=== PATIENT | male | born 1985 | race Caucasian/White ===

== ENCOUNTER → 2016-10-25 | Outpatient (CLI) | payer OTHER ==
[~2016-10-25] MED LIST: ATV1 PO; ATV5 PO; CHOL100027 PO; LTHSR/300 PO; RISP1TAB PO; RISP1TAB68 PO; RISP3TAB12 PO; SERT-234 PO; THIO5CAP2 PO
[2016-10-25 12:23] LABS: BASO % 0.4 %; BASO ABS # 0.03 K/uL (0-0.2); COMPLETE YES; HEMATOCRIT 43.2 % (42-52); IG% 0.5 %; LYMPH % 28.1 %; MEAN CELL VOLUME 85.4 fL (80-100); MEAN CORPUSCULAR HEMOGLOBIN 29.2 pg (25-34); MEAN CORPUSCULAR HGB CONC 34.3 g/dl (32-36); MEAN PLATELET VOLUME 10.1 fL (7.4-10.4); MONO % 6.1 %; NEUT % 62.9 %; PLATELET COUNT 229 K/uL (130-400); RED BLOOD COUNT 5.06 M/uL (4.7-6.1); WHITE BLOOD COUNT 8.53 K/uL (4.8-10.8)
[2016-10-25 13:03] LABS: ALT/SGPT 59 U/L (12-78); AST/SGOT 15 U/L (15-37); BLOOD UREA NITROGEN 10 mg/dl (7-18); BUN/CREATININE RATIO 9.5 (10-20); CALCIUM 9.5 mg/dl (8.5-10.1); CARBON DIOXIDE 30 mmol/L (21-32); CHLORIDE 105 mmol/L (98-107); CHOLESTEROL 164 mg/dl (0-200); GLUCOSE 109 mg/dl (70-99); GLUCOSE,FASTING 109 mg/dl (70-99); POTASSIUM 4.4 mmol/L (3.5-5.1); SODIUM 140 mmol/L (136-145)
[2016-10-25 13:14] LABS: ALB/GLOB RATIO 1.1 (0.9-2); ALKALINE PHOSPHATASE 67 U/L (45-117); CHOLESTEROL/HDL RATIO 4.3; HDL CHOLESTEROL 38 mg/dl; LDL CHOLESTEROL CALCULATED 81 mg/dl; TRIGLYCERIDES 227 mg/dl (0-150); VERY LOW DENSITY LIPOPROT CALC 45 mg/dl
== END | disposition home or self-care (01) ==
LOC: C.LAB 11:09
PROVIDERS: ATTEND Psychiatry & Neurology Psychiatry
DX: Z79.899 Other long term (current) drug therapy (principal)

== ENCOUNTER → 2017-06-25 | Outpatient (CLI) | payer OTHER ==
[2017-06-25 11:32] LABS: BLOOD UREA NITROGEN 18 mg/dl (7-18); BUN/CREATININE RATIO 20.5 (10-20); CARBON DIOXIDE 28 mmol/L (21-32); CHLORIDE 106 mmol/L (98-107); CREATININE 0.88 mg/dl (0.60-1.40); GLUCOSE 112 mg/dl (70-99); POTASSIUM 4.1 mmol/L (3.5-5.1); SODIUM 138 mmol/L (136-145)
== END | disposition home or self-care (01) ==
LOC: C.LAB 09:21
PROVIDERS: ATTEND Psychiatry & Neurology Psychiatry
DX: F25.0 Schizoaffective disorder, bipolar type (principal)

== ENCOUNTER → 2017-08-27 | Outpatient (CLI) | payer OTHER ==
[~2017-08-27] MED LIST changes: +ATV/1 PO; -ATV1 PO; -ATV5 PO; -CHOL100027 PO; +ESCI10TA17 PO; +LEVO25TA5 PO; +QUET1TAB30 PO; -RISP1TAB PO; -RISP1TAB68 PO; -RISP3TAB12 PO; -SERT-234 PO; -THIO5CAP2 PO
[2017-08-27 09:50] LABS: BLOOD UREA NITROGEN 16 mg/dl (7-18); CALCIUM 10.4 mg/dl (8.5-10.1); CARBON DIOXIDE 30 mmol/L (21-32); CREATININE 1.14 mg/dl (0.60-1.40); GLUCOSE 105 mg/dl (70-99); POTASSIUM 4.1 mmol/L (3.5-5.1); SODIUM 139 mmol/L (136-145)
== END | disposition home or self-care (01) ==
LOC: C.LAB 08:34
PROVIDERS: ATTEND Psychiatry & Neurology Psychiatry
DX: F25.0 Schizoaffective disorder, bipolar type (principal); Z51.81 Encounter for therapeutic drug level monitoring; Z79.899 Other long term (current) drug therapy

== ENCOUNTER → 2017-11-30 | Outpatient (CLI) | payer OTHER ==
[2017-11-30 10:42] LABS: ALBUMIN 4.2 gm/dl (3.4-5.0); ALT/SGPT 38 U/L (12-78); AST/SGOT 10 U/L (15-37); BLOOD UREA NITROGEN 12 mg/dl (7-18); CALCIUM 9.7 mg/dl (8.5-10.1); CARBON DIOXIDE 27 mmol/L (21-32); CHOLESTEROL 172 mg/dl (0-200); CREATININE 0.97 mg/dl (0.60-1.40); GLUCOSE 105 mg/dl (70-99); POTASSIUM 4.1 mmol/L (3.5-5.1); SODIUM 138 mmol/L (136-145)
[2017-11-30 10:52] LABS: ALKALINE PHOSPHATASE 60 U/L (45-117); LDL CHOLESTEROL CALCULATED 82 mg/dl; TOTAL PROTEIN 7.9 gm/dl (6.4-8.2)
== END | disposition home or self-care (01) ==
LOC: C.CPL 09:30
PROVIDERS: ATTEND Psychiatry & Neurology Psychiatry
DX: F25.0 Schizoaffective disorder, bipolar type (principal); Z79.899 Other long term (current) drug therapy

== ENCOUNTER 2019-11-09 21:19 | Inpatient (IN) ==
[2019-11-09 21:51] LABS: Basophils # (auto) 0.03 K/uL (0-0.2); Basophils % (auto) 0.2 %; Eosinophils # (auto) 0.04 K/uL (0-0.5); Eosinophils % (auto) 0.3 %; Hematocrit (blood only) 44.2 % (42-52); Hemoglobin 14.9 g/dL (14.0-18.0); Immature Granulocytes # (auto) 0.07 K/uL (0.00-0.02); Immature Granulocytes % (auto) 0.5 %; Lymphocytes # (auto) 3.23 K/uL (1.2-3.4); Lymphocytes % (auto) 23.3 %; Mean Corpuscular Hemoglobin 29.9 pg (25-34); Mean Corpuscular Hgb Conc 33.7 g/dL (32-36); Mean Corpuscular Volume 88.8 fL (80-100); Mean Platelet Volume 9.8 fL (7.4-10.4); Monocytes # (auto) 1.15 K/uL (0.11-0.59); Monocytes % (auto) 8.3 %; Neutrophils # (auto) 9.35 K/uL (1.4-6.5); Neutrophils % (auto) 67.4 %; Platelet Count 283 K/uL (130-400); RDW Coefficient of Variation 13.2 % (11.5-14.5); RDW Standard Deviation 42.9 fL (36.4-46.3); Red Blood Count 4.98 M/uL (4.7-6.1); White Blood Count 13.87 K/uL (4.8-10.8)
--- NOTE | 2019-11-09 21:54 | Emergency Department Note ---
Impression & Plan Hallucinations, Dehydration, Non compliance w medication regimen ED Provider Note NAME: CINTIA ACOSTA AGE: 34 SEX: M : 1985 ARRIVES VIA: [employer] INFORMANT: Patient, ED PROVIDER(S): Josh Pedraza MD Chief Complaint: Behavioral change HPI: Most of the history is gathered from EMS and police report. The patient will answer some questions but not all questions thus the HPI is limited. The patient does present via police as the patient reportedly gotten into an argument with a neighbor. He apparently did charge at the neighbor's front door. The patient does have a known history of schizoaffective disorder for which she does take medications. Patient denies any SI, HI, or AVH. The patient denies any alcohol or tobacco use. The patient denies any drug use. The patient denies any trauma. Patient states he does not hurt anywhere. In the room the patient does appear to be talking to someone or something that is not there. ROS: Limited secondary to clinical acuity and willingness to participate. Past medical history: See below Surgical history: See below Social history: See below Physical Exam: GENERAL: Anxious in appearance, cannot sit still. Wearing a mask. EYE EXAM: Normal conjunctiva. PERRL, no anisocoria and EOM's grossly intact w/o pain. NECK: Supple, no nuchal rigidity, no adenopathy, non-tender. No signs of meningismus. LUNGS: Clear to auscultation. Normal chest wall mechanics. HEART: NSR, no MRG. ABDOMEN: Abdomen soft, non-tender, normo-active bowel sounds, no masses, no rebound or guarding. BACK: No CVA TTP. SKIN: No rashes and no bruising. UPPER EXTREMITIES: Upper extremities are grossly normal. LOWER EXTREMITIES: Grossly normal, no edema. NEURO EXAM: A&O x3, cranial nerves II-XII grossly intact, normal speech, moves all 4 extremities on command w/o issue. Psych: Denies SI, HI, or AVH. May be talking to someone or something that is not there. Differential diagnoses: Mood disorder, infection, hypoglycemia, electrolyte abnormalities, cardiac sources, intracerebral event, toxicologic, trauma, neurologic, as well as other pathologies. Course: Patient was seen and evaluated at the bedside. A full history and physical exam was performed. EKG: None Imaging Studies: None MDM: Patient was seen and evaluated the bedside. The patient did have blood work completed. A lithium level was also obtained as the patient is on lithium. Patient's blood work shows a mild white count of 13. Normal H&H and platelet count. The patient does have mild change in T bili and AST with the patient does not have any right upper quadrant pain is not jaundiced. The patient's tox screen is negative. Still pending UDS. [place] level is very low. This may suggest that the patient either does not have the medication or is noncompliant. The patient may not be suitable to sign himself and so the psych pillowcase folder was can wait for the urine and then write a petitioning 302 statement. I did sign out the patient to the overnight physician Dr. Fenton pending reevaluation and disposition. Past Med/Surg History Medical History Schizoaffective disorder (Inactive) Social History Preferred Language: Welsh Communication Ability: Effective Current Living Situation: Family Feels Safe at Home: Declines to Answer Smoking Status: Unknown if ever smoked Hx Alcohol Use: No Hx Substance Use: No Allergies Allergies Allergy/AdvReac Type Severity Reaction Status Date / Time prednisone Allergy Severe PSYCHOTIC Verified 07/02/17 11:25 STATE diphenhydramine Allergy Unknown BENADRYL Verified 07/02/17 11:25 CREAM--RASH haloperidol Allergy Unknown UNKNOWN Verified 07/02/17 11:25 Home Meds Home Medications Medication Instructions Recorded Confirmed levothyroxine 50 mcg PO QAM 11/09/19 11/09/19 lithium carbonate 1,350 mg PO HS 11/09/19 11/09/19 lorazepam 0.5 mg PO DAILY 11/09/19 11/09/19 quetiapine 300 mg PO QAM 11/09/19 11/09/19 quetiapine [Seroquel] 600 mg PO HS 11/09/19 11/09/19 risperidone 0.5 mg PO QAM 11/09/19 11/09/19 risperidone 1 mg PO HS 11/09/19 11/09/19 venlafaxine 225 mg PO QAM 04/19/20 04/19/20 Results & Data (ED) Vital Signs Vital Signs - 24 hr 11/09/19 21:40 Temperature 36.6 C Temperature Source Oral Pulse Rate 86 Respiratory Rate 18 Respiratory Effort / Characteristics Non-Labored Respiratory Depth Normal Respiratory Pattern Regular Blood Pressure 136/90 Blood Pressure Mean 105 Pulse Oximetry 98 Oxygen Delivery Method Room Air Sepsis Recent Fever Within 48 Hours No Sepsis New/Unexplained Change in Mental Status No Sepsis Action Taken by Nursing No Action Required Home Medications Current Medication List: was personally reviewed by me Laboratory Data Attestation: I reviewed the patient's lab results. Result diagrams: 11/09/19 21:35 11/09/19 21:35 Lab Results 11/09/19 11/09/19 11/09/19 Range/Units 21:35 21:35 21:35 WBC 13.87 H (4.8-10.8) K/uL RBC 4.98 (4.7-6.1) M/uL Hgb 14.9 (14.0-18.0) g/dL Hct 44.2 (42-52) % MCV 88.8 (80-100) fL MCH 29.9 (25-34) pg MCHC 33.7 (32-36) g/dL RDW Std Deviation 42.9 (36.4-46.3) fL RDW Coeff of Donna 13.2 (11.5-14.5) % Plt Count 283 (130-400) K/uL MPV 9.8 (7.4-10.4) fL Immature Gran % (Auto) 0.5 % Neut % (Auto) 67.4 % Lymph % (Auto) 23.3 % Darke % (Auto) 8.3 % Eos % (Auto) 0.3 % Baso % (Auto) 0.2 % Immature Gran # (Auto) 0.07 H (0.00-0.02) K/uL Neut # (Auto) 9.35 H (1.4-6.5) K/uL Lymph # (Auto) 3.23 (1.2-3.4) K/uL Darke # (Auto) 1.15 H (0.11-0.59) K/uL Eos # (Auto) 0.04 (0-0.5) K/uL Baso # (Auto) 0.03 (0-0.2) K/uL Sodium 134 L (136-145) mmol/L Potassium 3.9 (3.5-5.1) mmol/L Chloride 101 (98-107) mmol/L Carbon Dioxide 28 (21-32) mmol/L Anion Gap 6.0 (3-11) BUN 15 (7-18) mg/dl Creatinine 1.50 H (0.6-1.4) mg/dl Est Cr Clr Drug Dosing 87.3 ml/min Est GFR ( Amer) 68.4 Est GFR (Non-Af Amer) 59.0 BUN/Creatinine Ratio 9.7 L (10-20) Glucose 106 H (70-99) mg/dl Calcium 10.1 (8.5-10.1) mg/dl Total Bilirubin 1.1 H (0.2-1) mg/dl AST 50 H (15-37) U/L ALT 47 (12-78) U/L Alkaline Phosphatase 77 (45-117) U/L Total Protein 8.5 H (6.4-8.2) gm/dl Albumin 4.9 (3.4-5.0) gm/dl Globulin 3.6 (2.5-4.0) gm/dl Albumin/Globulin Ratio 1.4 (0.9-2) TSH 3.760 (0.300-4.500) uIu/ml Salicylates < 1.7 L (2.8-20) mg/dl Acetaminophen 3 L (10-30) ug/ml [place] 0.3 L (0.6-1.2) mmol/L Ethyl Alcohol mg/dL (0-3) mg/dl 11/09/19 Range/Units 21:35 WBC (4.8-10.8) K/uL RBC (4.7-6.1) M/uL Hgb (14.0-18.0) g/dL Hct (42-52) % MCV (80-100) fL MCH (25-34) pg MCHC (32-36) g/dL RDW Std Deviation (36.4-46.3) fL RDW Coeff of Donna (11.5-14.5) % Plt Count (130-400) K/uL MPV (7.4-10.4) fL Immature Gran % (Auto) % Neut % (Auto) % Lymph % (Auto) % Darke % (Auto) % Eos % (Auto) % Baso % (Auto) % Immature Gran # (Auto) (0.00-0.02) K/uL Neut # (Auto) (1.4-6.5) K/uL Lymph # (Auto) (1.2-3.4) K/uL Darke # (Auto) (0.11-0.59) K/uL Eos # (Auto) (0-0.5) K/uL Baso # (Auto) (0-0.2) K/uL Sodium (136-145) mmol/L Potassium (3.5-5.1) mmol/L Chloride (98-107) mmol/L Carbon Dioxide (21-32) mmol/L Anion Gap (3-11) BUN (7-18) mg/dl Creatinine (0.6-1.4) mg/dl Est Cr Clr Drug Dosing ml/min Est GFR ( Amer) Est GFR (Non-Af Amer) BUN/Creatinine Ratio (10-20) Glucose (70-99) mg/dl Calcium (8.5-10.1) mg/dl Total Bilirubin (0.2-1) mg/dl AST (15-37) U/L ALT (12-78) U/L Alkaline Phosphatase (45-117) U/L Total Protein (6.4-8.2) gm/dl Albumin (3.4-5.0) gm/dl Globulin (2.5-4.0) gm/dl Albumin/Globulin Ratio (0.9-2) TSH (0.300-4.500) uIu/ml Salicylates (2.8-20) mg/dl Acetaminophen (10-30) ug/ml [place] (0.6-1.2) mmol/L Ethyl Alcohol mg/dL < 3.0 (0-3) mg/dl Blood Pressure Blood Pressure Findings: Elevated blood pressure Blood Pressure Disposition: elevated BP felt to be situational Discharge Plan Visit Data Chief Complaint: Mental Health Evaluation Stated Complaint: [facility] ED Provider: Josh Pedraza Discharge Problem: Hallucinations, Dehydration, Non compliance w medication regimen Forms Stand Alone Forms: My [facility], Suicide Prevention Resources Prescriptions Prescriptions: No Action venlafaxine 150 mg Capsule,Extended Release 24hr 225 mg PO QAM RF: 0 quetiapine [Seroquel] 200 mg Tablet 600 mg PO HS RF: 0 risperidone 0.5 mg Tablet 0.5 mg PO QAM RF: 0 risperidone 0.5 mg Tablet 1 mg PO HS RF: 0 quetiapine 200 mg tablet 300 mg PO QAM RF: 0 lithium carbonate 300 mg capsule 1,350 mg PO HS RF: 0 levothyroxine 50 mcg tablet 50 mcg PO QAM RF: 0 lorazepam 0.5 mg tablet 0.5 mg PO DAILY RF: 0
[2019-11-09 22:07] LABS: Albumin Level 4.9 gm/dl (3.4-5.0); BUN Creatinine Ratio 9.7 (10-20); Calcium 10.1 mg/dl (8.5-10.1); Creatinine Clr Calc Pharmacy 87.3 ml/min; Est GFR (African American) 68.4; Potassium 3.9 mmol/L (3.5-5.1)
[2019-11-09 22:18] LABS: Albumin Globulin Ratio 1.4 (0.9-2); Bilirubin,Total 1.1 mg/dl (0.2-1); Globulin 3.6 gm/dl (2.5-4.0); Thyroid Stimulating Hormone 3.76 uIu/ml (0.300-4.500); Total Protein 8.5 gm/dl (6.4-8.2)
[2019-11-09 22:30] LABS: Acetaminophen 3 ug/ml (10-30); Lithium 0.3 mmol/L (0.6-1.2); Salicylate < 1.7 mg/dl (2.8-20)
[2019-11-09 23:51] LABS: Appearance Urine Clear (Clear); Bilirubin Urine Negative (Negative); Blood Urine Negative (Negative); Color Urine Yellow; Glucose Urine UA Negative (Negative); Ketones Urine Negative (Negative); Leukocyte Esterase Urine Negative (Negative); Nitrite Urine Negative (Negative); Protein Urine Trace (Negative); Specific Gravity Urine 1.014 (1.000-1.030); Urobilinogen Urine Negative (Negative); pH Urine 5.5 (4.5-7.5)
[2019-11-10 00:09] LABS: Mucus Urine Present (None Prsent); RBC Urine 0-4 /hpf (0-4)
[2019-11-10 00:10] LABS: Bacteria Urine Negative (Negative); WBC Urine 0-5 /hpf (0-5)
[2019-11-10 00:15] LABS: Amphetamines+Metham, Urine Neg (Neg); Barbiturates, Urine Neg (Neg); Benzodiazepine, Urine Neg (Neg); Cocaine, Urine Neg (Neg); MDMA (Ecstacy), Urine Pos (Neg); Methadone, Urine Neg (Neg); Opiate, Urine Neg (Neg); Phencyclidine, Urine Neg (Neg)
[2019-11-10] MEDS ORDERED: LORazepam 1 MG TAB PO STA (00:37)
--- NOTE | 2019-11-10 00:42 | Emergency Department Note ---
ED Visit Note ED Physician Note: Patient Boarding. Date 11/10/19. Time 11:30 pm. 34 age male patient remains in ED awaiting an available psychiatric placement. Patient with acute paranoid schizophrenia off his medications. Severely bizare behavior and not ineracting normally. Patient evaluated and pacing room but re- directable. At 12:30a worsening agitation and pacing not following directions. Initially willing to take PO Ativan. Patient 302 signed by me given clearly not understandin situation. Denies hallucinations but he very much appears to be reacting to internal stimuli and looking at things that are not there. Patient remains in NAD and vitals stable. Psychiatric exam reveals acute paranoid schizophrenia with loss of touch with reality. Earlier labs unremarkable and no additional testing indicated at this time. 1:10am escalating behavior, unwilling to follow commands, refusing ativan that was earlier ordered for him and actively trying to leave. Reviewed allergy of Haldol, apparently this was followed by [facility], thus given the escalation in his agitation will give small dose Haldol with IM ativan and monitor closely with cardiac monitoring following this. I was unable to verbally deescalate nor re- direct the patient. The patient's combative behavior was risking a catastrophe. To protect the staff and the patient from harm it was felt at this point necessary to chemically restrain the patient. 1:30am mildly improved but continued attempts at getting away and clearly requiring further sedation thus Ativan and Zyprexa ordered which patient was given. Following this patient calm and falling asleep. No longer agitated nor making hostile movements. Repeat exams regularly patient stable. Patient at times awake, walking around the room and still bizarre affect and activity but no longer aggressive/agitated. Critical Care: I have personally spent 45 minutes of critical care time in the direct management of this patient. Acutely Agitated psychiatric patient requiring chemical sedation. This was a life/limb threatening event. This 45 minutes is in excess of all separately billable procedures. Elvis Fenton MD
[2019-11-10] MEDS ORDERED: LORazepam 2 MG/ML VIAL (IM USE) IM STA ×2 (01:14→01:39)
[2019-11-10] MEDS ORDERED: HALOPERIDOL LACTATE 5 MG/ML 1 ML VIAL IM STA (01:14)
[2019-11-10] MEDS ORDERED: OLANZapine 10 MG/2.1 ML SDV IM ONE (01:36)
[2019-11-10] MEDS ORDERED: OLANZapine 10 MG/2.1 ML SDV IM STA (01:39)
--- NOTE | 2019-11-10 06:44 | Emergency Department Note ---
ED Visit Note Received patient in signout. History and physical verified by me. [facility] to [facility]. .
[2019-11-10] MEDS ORDERED: BISMUTH SUBSALICYLATE PER ML OMNICELL CHARGE PO PRN (10:50)
[2019-11-10] MEDS ORDERED: MAGNESIUM HYDROXIDE SUSP 30 ML UDC PO PRN (10:50)
[2019-11-10] MEDS ORDERED: SODIUM CHLORIDE 0.65% NA SOLN 45 ML (OCEAN) PRN (10:50)
[2019-11-10] MEDS ORDERED: ALUMINUM/MAGNESIUM SUSP 30 ML UDC PO PRN (10:50)
[2019-11-10] MEDS ORDERED: OLANZapine 10 MG/2.1 ML SDV IM PRN (10:54)
[2019-11-10] MEDS ORDERED: risperiDONE 1 MG TABLET PO PRN (10:55)
--- NOTE | 2019-11-10 14:22 | History & Physical ---
Date of Service November 10, 2019 Impression / Recommendations Impression 34-year-old male admitted involuntarily for inpatient psychiatric treatment on 11/10/2019 after being brought to the ED by police on a 302 warrant. It was reported that police were called by the patient's neighbor following a verbal altercation between the two. Pt was reported disorganized and was therefore brought to the ED for mental health evaluation. 302 petitioning statement was completed by ED psychiatric case specialist, and upheld by ED physician. Pt was accepted to our unit for treatment of schizoaffective disorder, bipolar type. Will need to confirm home medication regimen with patient's outpatient psychiatrist. At this time, will offer prns of risperidone for psychosis/delusions/restlessness and can adjust scheduled dosing accordingly. Will continue reported home doses of lithium, quetiapine, lorazepam, and risperidone. Pt is declining to involve his parents in his treatment at this time, but is reporting a plan to move out of their house and become more independent - so it would be helpful to involve them in discussions about this. Will coordinate care with patient's therapist and psychiatrist. Pt will be encouraged to participate in group and recreational programming, and to work on development of healthy and effective coping strategies. Inpatient psychiatric treatment is medically necessary at this time due to concerns of decompensation and risk of harm to self or others, whether intentional or unintentional. Dr. Mare Lopez was directly involved in review and discussion of the patient's case and participated in medical decision making regarding treatment recommend ations. (1) Schizoaffective disorder: 11/09 - Admitted to a locked inpatient behavioral health unit, on q15 minute safety checks - Outpatient psychiatrist has confirmed diagnosis of schizoaffective disorder, bipolar type. Will require records and continued coordination regarding patient's current medication list and other information surrounding his history. - At this time, will continue lithium 1350mg qHS, lorazepam 0.5mg qHS, quetiapine 300mg qAM and 600mg qHS, and risperidone 0.5mg qAM and 1mg qHS (with 1mg prn dose available). Holding venlafaxine until medication list can be confirmed - can re-initiate if patient reports symptoms of discontinuation syndrome. UDS positive for MDMA, with recent prescription for bupropion (though not clear if this is a current or past medication). - Fasting labs obtained by outpatient psychiatrist in 02/2019. HgbA1c was 5.1%. Triglycerides elevated at 217. Total cholesterol within normal limits at 139. LDL - 58; HDL - 38. - Pt's creatinine was mildly elevated in the ED - given continued use of lithium, will repeat BMP for tomorrow morning - Encourage participation in group and recreational therapies. Will assist with development of healthy and effective coping strategies - Encourage family meeting to involve parents in safety/discharge planning - unwilling to sign an JERAMIE at this time - Arrange appropriate aftercare appointments Schizoaffective disorder type: bipolar Qualified Code(s): F25.0 - Schizoaffective disorder, bipolar type (2) Hypothyroidism: 11/09 - Continue home dose of levothyroxine 50mcg qAM Hypothyroidism type: unspecified Qualified Code(s): E03.9 - Hypothyroidism, unspecified Risk Factors Assessment Do You Have Access To A Gun?: No Protective Factors Assessment Employed: No Psychiatric History Identifying Data EMANUEL ACOSTA is a 34-year-old M who currently lives in [place] with his mother and father. Pt has a history of schizoaffective disorder, bipolar type, and was admitted on 11/10/19 10:51 on a 302 involuntary commitment for delusions/paranoia leading to a verbal altercation with a neighbor. Police were called to patient's home and he was brought to the ED for further evaluation. Chief Complaint "For the last few weeks, I've been sort of in survival mode. Just trying to take care of myself and my dog." History of Present Illness Emanuel Acosta is a 34-year-old male admitted involuntarily on 11/10/2019 after being brought to the ED by [place] Police for a mental health evaluation. Pt has a reported history of schizoaffective disorder, bipolar type with last psychiatric hospitalization reportedly in 06/2017. 302 petitioning statement was prepared by ED psychiatric case specialist, upheld in ED by physician. Statement reads: "Emanuel Acosta was brought to ED via [employer] after neighbors called police d/t patient engaging in a verbal altercation with them and charging at their door. Emanuel appears confused and disoriented. Emanuel will not answer most questions. He was observed talking to a person who wasn't there. Emanuel is pacing and restless but does not appear oriented to where he is going or what he is doing. Emanuel is not able to provide for his self care and personal safety at this time d/t not being reality-based. Mother reports patient may not be taking his medication. Patient's lithium level was low in the ED." Pt was rather agitated in the ED, requiring IM injections of haloperidol, lorazepam, and olanzapine - he appears to be calm upon arrival to the unit. Pt was cooperative with psychiatric evaluation. He reports feeling as though he has been in "survival mode" for the past several weeks. Although he has difficulty describing what this means, he is able to verbalize awareness that he has not been as stable psychiatrically for the past month. Pt is unable to provide any "warning signs" of this instability, but states his mother was also noticing some concerns. Pt reports his mother had encouraged him to reach out to his outpatient psychiatrist, or stated that she would do it for him. Pt speaks on several separate occasions about his frustration with feeling he was being pressured by his parents to make certain decisions. Pt states that he has been wanting to move out of his parents house, but admits that there is no specific plan in place to make this happen as "I've just been trying to clean and pack things up, but I don't know where I would go." Pt states that he feels his relationship with his parents has been strained for the past month. When attempting to gather more details about this, patient is unable to offer specifics. Pt was asked about the event which directly lead to his admission. He did require a significant amount of prompting before even mentioning the altercation with his neighbor, and even then was unsure of many of the details. Patient's understanding is that he had been out walking his dog and "wandered onto the neighbor's property." He states the neighbor started yelling at him, and next thing he knew the police were at his house. When asked about details, only then does patient admit he walked up to the neighbor's door and knocked. Pt is unsure about the nature of the argument and states the man was not someone he normally interacted with. Pt did deny feeling compelled to speak with the man, or being instructed to talk with him by any voices. Pt's frequent response to questions on this topic was "it was a blur." Pt does admit to feeling "sad" more frequently, stating "I'm not smiling as much as I used to." He also admits to increased anxiety in the setting of his strained relationship with his parents. Pt states that his appetite has been decreased for the past month, and that while he is not feeling fatigued or having difficulty sleeping "I just don't get enough sleep." Pt denies SI presen tly, but states that he had thought about "you know people that cut themselves? I've never done it, but I did think about it a couple days ago." Pt states that he has not been admitted for psychiatric treatment in over 2 years. He has had consistent therapy and psychiatric medication management for 15+ years. Pt does admit to some recent medication adjustments (titration of quetiapine and init iation of risperidone) in order to improve mood stability. Pt denies SI, HI, SIB, A/V hallucinations, paranoia, valeri/hypomania, OCD, PTSD, eating disorder, and other specific psychiatric symptoms. Past Psychiatric History Current Psychiatric Diagnosis: Schizoaffective Disorder, bipolar type Outpatient Services: Psychiatrist - Dr. Candelario Therapist - Gia Nichols [facility] Previous Psych Admissions: Most recent psychiatric admission was reportedly in 06/2017 at [facility]. Pt has been admitted to [facility] on several occasions - 01/2004, 01/2010, and 11/2011. Do You Have Access To A Gun?: No History of Previous Suicide Attempt: No Past Medication Trials: 1. Risperdal 2. [place] 3. Seroquel 4. Ativan 5. Effexor 6. Wellbutrin 7. Propranolol 8. Benztropine 9. Haldol 10.Zyprexa 11.Zoloft 12.Prolixin Past Head Trauma/Neuro History History of Concussion/Seizure: No Allergies Allergy/AdvReac Type Severity Reaction Status Date / Time prednisone Allergy Severe PSYCHOTIC Verified 07/02/17 11:25 STATE diphenhydramine Allergy Unknown BENADRYL Verified 07/02/17 11:25 CREAM--RASH haloperidol Allergy Unknown UNKNOWN Verified 07/02/17 11:25 Home Medications Home Medications Medication Instructions Recorded Confirmed Type levothyroxine 50 mcg PO QAM 11/09/19 11/09/19 History lithium carbonate 1,350 mg PO HS 11/09/19 11/09/19 History lorazepam 0.5 mg PO DAILY 11/09/19 11/09/19 History quetiapine 300 mg PO QAM 11/09/19 11/09/19 History quetiapine [Seroquel] 600 mg PO HS 11/09/19 11/09/19 History risperidone 0.5 mg PO QAM 11/09/19 11/09/19 History risperidone 1 mg PO HS 11/09/19 11/09/19 History venlafaxine 225 mg PO QAM 11/09/19 11/09/19 History Family History Family History of: None Alcohol History Hx of Alcohol Use Over the Past 12 Months: No AUDIT Total Score: 0 Pt denies alcohol consumption in the past 2.5 years. Smoking Use Have You Smoked or Used Tobacco Products in the Last 30 Days: No Smoking Status: Former smoker (reports history of chewing and smoking - quit >6mo ago) Substance History Hx of Prescription Med Misuse Over the Past 12 Months: No Hx of Over the Counter Med Misuse Over the Past 12 Months: No Hx of Inhalent Misuse Over the Past 12 Months: No Hx of Organic Substance Use Over the Past 12 Months: No Hx of Illegal Substances/Street Drug Use Over Past 12 Months: No Problems as a Result of Past Substance Use: None Identified Pt denies current use of past experimentation with illicit substances. 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) Marital Status: Single Number Of Children: N/A Beliefs That Will Affect Care: Spiritual ("I believe in something, I have leslye") Current Legal Problems: No Hx Legal Problems: No Hx Traumatic Life Events: No Psychological Trauma History Comment: Denies Patient History Medical History Schizoaffective disorder Social History Preferred Language: [place] Communication Ability: Effective Trademark Attorney Required: No Beliefs That Will Affect Care: Spiritual ("I believe in something, I have leslye") Current Living Situation: Family Feels Safe at Home: Declines to Answer Smoking Status: Former smoker (reports history of chewing and smoking - quit >6mo ago) Hx Alcohol Use: No Hx Substance Use: No Review of Systems Review of Systems: Constitutional: denied Cardiovascular: denied Respiratory: denied Gastrointestinal: reports reduced appetite Neurological: denied Psychiatric: denies symptoms other than stated above Total of at least 10 systems reviewed, pertinent positives as above and in HPI. Physical Exam Psychiatric: Orientation: alert, oriented x 3 and cooperative Apperance: appropriately dressed, appropriately groomed and appeared stated age Obese male seated in no acute distress. Pt is appropriate dressed for setting, still wearing paper scrubs. Level of hygiene appears adequate, though grooming is somewhat limited (stubble on face, hair mildly unkempt). Eye Contact: + fair eye contact Motor Behavior: steady gait and station and no abnormal motor movements Speech: normal rate/rhythm/volume of speech (slow speach, frequent delays before answering questions); no pressured speech (not rapid) Affect: + flat affect Mood: + anxious mood ("I've just been in survival mode" and "pretty stressed lately") Thought Process: goal directed thought process, + thought blocking (delays before responding to questions, abrupt endings to answers) and + concrete thought process Thought Content: + hopelessness (occasional); no delusions (pt denies any overt delusional thoughts) Pt provides rather vague reports regarding his psychiatric symptoms/history - unable to provide a full/detailed account of events leading to admission Suicidal Thoughts: denies suicidal thoughts and denies suicidal intent Homicidal Thoughts: denies homicidal thoughts Hallucinations: no auditory hallucinations and no visual hallucinations Denies, though was reportedly talking to an unseen person while in the ED prior to admission Cognition: attention grossly intact and language grossly intact; + recent memory not intact (several significant gaps in patient's pre-admission account) Insight: + impaired insight Judgement: + impaired judgement Vital Signs (Past 24 Hours): Last Vital Signs Temp 36.7 C 11/10/19 12:35 Pulse 102 H 11/10/19 12:35 Resp 16 11/10/19 12:35 BP 134/76 11/10/19 12:35 Pulse Ox 100 11/10/19 11:23 Exam Statement: A physical exam was performed in the ER prior to admission to the unit by Dr. Josh Pedraza MD. I accept that physical as correct/medical clearance for the inpatient physical exam. Results & Data ([id number]) Laboratory Results Laboratory Results - last 24 hr 0411/09/19 11/09/19 21:35 21:35 21:35 WBC 13.87 H RBC 4.98 Hgb 14.9 Hct 44.2 MCV 88.8 MCH 29.9 MCHC 33.7 RDW Std Deviation 42.9 RDW Coeff of Donna 13.2 Plt Count 283 MPV 9.8 Immature Gran % (Auto) 0.5 Neut % (Auto) 67.4 Lymph % (Auto) 23.3 [place] % (Auto) 8.3 Eos % (Auto) 0.3 Baso % (Auto) 0.2 Immature Gran # (Auto) 0.07 H Neut # (Auto) 9.35 H Lymph # (Auto) 3.23 [place] # (Auto) 1.15 H Eos # (Auto) 0.04 Baso # (Auto) 0.03 Sodium 134 L Potassium 3.9 Chloride 101 Carbon Dioxide 28 Anion Gap 6.0 BUN 15 Creatinine 1.50 H Est Cr Clr Drug Dosing 87.3 Est GFR ( Amer) 68.4 Est GFR (Non-Af Amer) 59.0 BUN/Creatinine Ratio 9.7 L Glucose 106 H Calcium 10.1 Total Bilirubin 1.1 H AST 50 H ALT 47 Alkaline Phosphatase 77 Total Protein 8.5 H Albumin 4.9 Globulin 3.6 Albumin/Globulin Ratio 1.4 TSH 3.760 Urine Color Urine Appearance Urine pH Ur Specific [place] Urine Protein Urine Glucose (UA) Urine Ketones Urine Blood Urine Nitrite Urine Bilirubin Urine Urobilinogen Ur Leukocyte Esterase Urine RBC Urine WBC Ur Epithelial Cells Urine Bacteria Hyaline Casts Urine Mucus Salicylates < 1.7 L Urine Opiates Screen Ur Methadone, Qual Acetaminophen 3 L Urine Barbiturates Ur Phencyclidine (PCP) U Amphetamin/Meth Scrn Urine MDEA MDMA (Ecstasy) Screen MDMA Urine MDMA U Benzodiazepines Scrn [place] 0.3 L Ur Cocaine Metabolite U Marijuana (THC) Screen Ethyl Alcohol mg/dL 11/09/19 11/09/19 11/09/19 21:35 Unknown Unknown WBC RBC Hgb Hct MCV MCH MCHC RDW Std Deviation RDW Coeff of [place] Plt Count MPV Immature Gran % (Auto) Neut % (Auto) Lymph % (Auto) [place] % (Auto) Eos % (Auto) Baso % (Auto) Immature Gran # (Auto) Neut # (Auto) Lymph # (Auto) [place] # (Auto) Eos # (Auto) Baso # (Auto) Sodium Potassium Chloride Carbon Dioxide Anion Gap BUN Creatinine Est Cr Clr Drug Dosing Est GFR ( Amer) Est GFR (Non-Af Amer) BUN/Creatinine Ratio Glucose Calcium Total Bilirubin AST ALT Alkaline Phosphatase Total Protein Albumin Globulin Albumin/Globulin Ratio TSH Urine Color Yellow Urine Appearance Clear Urine pH 5.5 Ur Specific [place] 1.014 Urine Protein Trace H Urine Glucose (UA) Negative Urine Ketones Negative Urine Blood Negative Urine Nitrite Negative Urine Bilirubin Negative Urine Urobilinogen Negative Ur Leukocyte Esterase Negative Urine RBC 0-4 Urine WBC 0-5 Ur Epithelial Cells 5-10 H Urine Bacteria Negative Hyaline Casts 10-30 H Urine Mucus Present A Salicylates Urine Opiates Screen Neg Ur Methadone, Qual Neg Acetaminophen Urine Barbiturates Neg Ur Phencyclidine (PCP) Neg U Amphetamin/Meth Scrn Neg Urine MDEA MDMA (Ecstasy) Screen Pos H MDMA Urine MDMA U Benzodiazepines Scrn Neg [place] Ur Cocaine Metabolite Neg U Marijuana (THC) Screen Neg Ethyl Alcohol mg/dL < 3.0 11/09/19 Unknown WBC RBC Hgb Hct MCV MCH MCHC RDW Std Deviation RDW Coeff of [place] Plt Count MPV Immature Gran % (Auto) Neut % (Auto) Lymph % (Auto) [place] % (Auto) Eos % (Auto) Baso % (Auto) Immature Gran # (Auto) Neut # (Auto) Lymph # (Auto) [place] # (Auto) Eos # (Auto) Baso # (Auto) Sodium Potassium Chloride Carbon Dioxide Anion Gap BUN Creatinine Est Cr Clr Drug Dosing Est GFR ( Amer) Est GFR (Non-Af Amer) BUN/Creatinine Ratio Glucose Calcium Total Bilirubin AST ALT Alkaline Phosphatase Total Protein Albumin Globulin Albumin/Globulin Ratio TSH Urine Color Urine Appearance Urine pH Ur Specific [place] Urine Protein Urine Glucose (UA) Urine Ketones Urine Blood Urine Nitrite Urine Bilirubin Urine Urobilinogen Ur Leukocyte Esterase Urine RBC Urine WBC Ur Epithelial Cells Urine Bacteria Hyaline Casts Urine Mucus Salicylates Urine Opiates Screen Ur Methadone, Qual Acetaminophen Urine Barbiturates Ur Phencyclidine (PCP) U Amphetamin/Meth Scrn Urine MDEA Pending MDMA (Ecstasy) Screen MDMA Pending Urine MDMA Pending U Benzodiazepines Scrn [place] Ur Cocaine Metabolite U Marijuana (THC) Screen Ethyl Alcohol mg/dL Current Inpatient Medications Current Inpatient Medications: Current Inpatient Medications Acetaminophen (Tylenol) 650 mg PO Q4H PRN PRN Reason: Headache or Minor Fever Stop: 12/10/19 10:49 Al Hydrox/Mg Hydrox/Simethicone (Maalox) 30 ml PO Q4H PRN PRN Reason: GI Upset Stop: 12/10/19 10:49 Bismuth Subsalicylate (Kaopectate) 15 ml PO PRN PRN PRN Reason: Loose Stool Stop: 12/10/19 10:49 Levothyroxine Sodium (Synthroid) 50 mcg PO DAILYBB RAGHAVENDRA Stop: 12/11/19 07:59 [place] Carbonate ([place] Carbonate) 1,350 mg PO HS [facility] Stop: 12/10/19 20:59 Lorazepam (Ativan) 0.5 mg PO DAILY RAGHAVENDRA Stop: 12/11/19 08:59 Magnesium Hydroxide (Milk Of Magnesia) 30 ml PO DAILY PRN PRN Reason: Constipation Stop: 12/10/19 10:49 Olanzapine (Zyprexa) 10 mg IM Q6H PRN PRN Reason: psychosis Stop: 12/10/19 10:59 Quetiapine Fumarate (Seroquel) 600 mg PO HS [facility] Stop: 12/10/19 20:59 Quetiapine Fumarate (Seroquel) 300 mg PO QAM RAGHAVENDRA Stop: 12/11/19 08:59 Risperidone (Risperdal) 0.5 mg PO QAM RAGHAVENDRA Stop: 12/11/19 08:59 Risperidone (Risperdal) 1 mg PO HS RAGHAVENDRA Stop: 12/10/19 20:59 Risperidone (Risperdal) 1 mg PO Q6H PRN PRN Reason: psychosis Stop: 12/10/19 10:54 Sodium Chloride ([place] Nasal) 1 - 2 sprays NA PRN PRN PRN Reason: Nasal Dryness/Congestion Stop: 12/10/19 10:49
[2019-11-10] MEDS: LORazepam 0.5 MG TAB PO SCH (21:56)
[2019-11-10] MEDS: LITHIUM CARBONATE 300 MG TAB PO SCH (21:56)
[2019-11-10] MEDS: risperiDONE 1 MG TABLET PO SCH (21:57)
[2019-11-10] MEDS: QUETIAPINE FUMARATE 300 MG TABLET PO SCH (21:57)
[2019-11-11] MEDS: ACETAMINOPHEN 325 MG TAB PO PRN (05:54)
[2019-11-11] MEDS: QUETIAPINE FUMARATE 300 MG TABLET PO SCH ×2 (07:47→21:36)
[2019-11-11] MEDS: LEVOTHYROXINE SODIUM 50 MCG TABLET PO SCH (07:47)
[2019-11-11] MEDS: risperiDONE 0.5 MG TABLET PO SCH (07:47)
[2019-11-11 08:13] LABS: BUN Creatinine Ratio 13.6 (10-20); Calcium 9.9 mg/dl (8.5-10.1); Creatinine Clr Calc Pharmacy 122.4 ml/min; Est GFR (Non-African American) 88.8; Potassium 3.9 mmol/L (3.5-5.1)
--- NOTE | 2019-11-11 08:26 | Psychiatric Progress Note ---
Date of Service November 11, 2019 Impression / Recommendations Impression 34-year-old male with schizoaffective disorder bipolar type who is admitted involuntarily after being brought to the ED by police on a 302 warrant due to psychosis, erratic and disorganized behavior in the community, and inability to provide for his own basic needs and safety. Police were called by the patient's neighbor following a verbal altercation between the two, and the patient appeared altered, disoriented, and family reported he was not taking his medication. His lithium level was low on presentation, and he admits to poor medication adherence, which appears to be due to psychosis, disorganization, and forgetting to take meds. He was initially continued on his home doses of lithium, quetiapine, lorazepam, and risperidone, with additional risperidone as needed doses. We have now received his outpatient medication list and will add bupropion which he is also supposed to be taking and which may be helpful for mood. He initially declined to involve his parents in his treatment, but is not today willing to sign a release and have a family meeting. He was also willing for a referral for case management services, which will be important for him to have additional support as 1 of his goals is to eventually live independently. Inpatient psychiatric treatment remains medically necessary at this time due to severity of psychotic symptoms, inability to provide for his own basic needs, and risk of harm to both himself or others as a result of his psychosis. (1) Schizoaffective disorder: 11/09 - Admitted to a locked inpatient behavioral health unit, on q15 minute safety checks - Outpatient psychiatrist has confirmed diagnosis of schizoaffective disorder, bipolar type. Will require records and continued coordination regarding patient's current medication list and other information surrounding his history. - At this time, will continue lithium 1350mg qHS, lorazepam 0.5mg qHS, quetiapine 300mg qAM and 600mg qHS, and risperidone 0.5mg qAM and 1mg qHS (with 1mg prn dose available). Holding venlafaxine until medication list can be confirmed - can re-initiate if patient reports symptoms of discontinuation syndrome. UDS positive for MDMA, with recent prescription for bupropion (though not clear if this is a current or past medication). - Fasting labs obtained by outpatient psychiatrist in 02/2019. HgbA1c was 5.1%. Triglycerides elevated at 217. Total cholesterol within normal limits at 139. LDL - 58; HDL - 38. - Pt's creatinine was mildly elevated in the ED - given continued use of lithium, will repeat BMP for tomorrow morning - Encourage participation in group and recreational therapies. Will assist with development of healthy and effective coping strategies - Encourage family meeting to involve parents in safety/discharge planning - unwilling to sign an JERAMIE at this time - Arrange appropriate aftercare appointments 11/10 - Creatinine elevated on admission (1.5), recheck today is 1.07. Resumed lithium yesterday, will recheck trough after 5 days (11/14). - Resume home dose of bupropion XL 250 mg every morning. - Collateral information from parents would be very helpful, and today patient indicates willingness to sign an JERAMIE and schedule a family meeting. - Coordinate care with Dr. Candelario, outpatient psychiatrist. He will need to be rescheduled with his therapist, Gia Ca - Refer for [facility] for additional support. (2) Hypothyroidism: 11/09 - Continue home dose of levothyroxine 50mcg qAM Risk Factors Assessment Do You Have Access To A Gun?: No Protective Factors Assessment Employed: No Interval History Identifying Information CINTIA ACOSTA is a 34-year-old M who currently lives in [place] with his mother and father, has a history of schizoaffective disorder, bipolar type, and was admitted on 11/10/19 10:51 on a 302 involuntary commitment for delusions/paranoia leading to a verbal altercation with a neighbor. Police were called to patient's home and he was brought to the ED for further evaluation. Chief Complaint "Little tired right now". Review of Systems Sleep Information Total Hours of Sleep: 7 Sleep Comments: pt appeared to sleep 1.25 hrs during evening shift. pt on q-15 minute checks Meal Information Percent Meal Consumed - Dinner: 100 Subjective Subjective Patient was seen & assessed and interval progress reviewed with nursing and social work. Staff report he is refusing to sign an JERAMIE for his parents so we have not been able to get collateral. There is still some question of his outpatient med list as he's had multiple recent changes; have requested records from Dr. Candelario. He took his medications as ordered, and went to community meeting last night. On my assessment, he states that he continues to feel tired, with muscle soreness, and his right thumbnail hurts as he smashed it with a rock, but cannot say how this happened, saying he does not recall. He is a poor historian for the events leading up to admission, stating that he cannot recall how he came to be in the hospital, but that the police came and picked him up at his parents house. He stated he was "really stressed out and feeling like I had to do things that were way too much for me to do. Audra stuck and had to move forward without any help from people I'd asked for help. Basically things just spiraled out of control, next thing I knew police were taking me here." He is able to clarify that he was feeling "like I had to move out of my parents house and get my room back in order so I didn't leave a mess for my parents," but did not actually have a place to move into. He said he had been thinking about moving to [place] to live with his sister "until things get better." He is unsure of what medications he is supposed to be taking, and states there were multiple adjustments and changes recently. Reviewed his outpatient records which indicate multiple medication adjustments over the last 2 months, including increasing lithium dose, discontinuation of propanolol, increasing quetiapine, decrease in bupropion XL due to concern for manic symptoms, discontinuation of venlafaxine XR due to manic symptoms, and the addition of risperidone over the past week. He admits to difficulty taking his medications as prescribed at home, stating that he used to use a pillbox and had "a system" that worked well for him, but lately has been poorly compliant. He states his mood was "horrible, terrible" yesterday, but today is "better." He states that he recently has been unable to "smile or laugh, show any emotion." He had suicidal thoughts yesterday, but none so far today. He denies thoughts of harming others. He reports visual hallucinations over the past 2 to 4 weeks, including seeing his dog in multiple places at the same time, different colored lights that flash, and shadows that appear "strange, digital content specialist or darker than they should be." He is experiencing hallucinations of lights and shadows here in the hospital. He states he has not yet contacted his parents but plans to do so today, plans to return to live with them for the time being, and is willing to have a family meeting with them and the director social welfare. He states he has not been to therapy in months as he missed an appointment and then did not follow through on rescheduling. His goal is to "get my medications back in order and find a system I can use to take them, because I don't always remember." Summary of Past History Care coordinated with Dr. Candelario: Patient was on Invega Sustenna but it was discontinued due to sedation, weight gain, and negative psychotic symptoms. His p.o. intake has decreased over the past 2 weeks in the context of worsening anxiety and paranoia. He believes he has a variant of bipolar disorder, as well as significant social anxiety. He was doing well until he started to decompensate several months ago. His mother called about a month ago and reported behavior changes. The home situation is problematic, as both parents are destabilizing factors for the patient, especially his father. He has not be en able to identify an alternative living situation that he can afford. The patient rescinded releases for Dr. Candelario to talk with his parents about a week ago as he was frustrated that they were intruding into his affairs. He has been extremely frustrated due to his inability to live independently of his parents, and feeling hassled by them. His therapist Gia has been interacting with the parents as well. Physical Exam Psychiatric Orientation: alert and cooperative Apperance: appropriately dressed, appropriately groomed and appeared stated age Eye Contact: + poor eye contact Makes only very brief eye contact, otherwise gaze is averted. Motor Behavior: steady gait and station and no abnormal motor movements AIMS 0 Slowed speech, long pauses at times. Affect: + depressed affect and + constricted affect; + mood not congruent with affect "Better." Thought Process: goal directed thought process Thought Content: + paranoid, + hopelessness and + guilt Vague statements, struggles to clarify Suicidal Thoughts: denies suicidal thoughts Was having suicidal thoughts as recently as yesterday, but none so far today Homicidal Thoughts: denies homicidal thoughts Hallucinations: + visual hallucinations Cognition: language grossly intact; + recent memory not intact, + remote memory not intact and + attention not intact Insight: + impaired insight Judgement: + impaired judgement Vital Signs (Past 24 Hours) Last Vital Signs Temp 36.3 C L 11/11/19 06:42 Pulse 116 H 11/11/19 06:44 Resp 18 11/11/19 06:42 BP 134/79 11/11/19 06:44 Pulse Ox 100 11/10/19 11:23 Results & Data ([facility]) Laboratory Results Laboratory Results - last 24 hr 11/11/19 07:27 Sodium 135 L Potassium 3.9 Chloride 105 Carbon Dioxide 26 Anion Gap 4.0 BUN 15 Creatinine 1.07 Est Cr Clr Drug Dosing 122.4 Est GFR ( Amer) 103.0 Est GFR (Non-Af Amer) 88.8 BUN/Creatinine Ratio 13.6 Glucose 122 H Calcium 9.9 Current Inpatient Medications Current Inpatient Medications: Current Inpatient Medications Acetaminophen (Tylenol) 650 mg PO Q4H PRN PRN Reason: Headache or Minor Fever Stop: 12/10/19 10:49 Last Admin: 11/11/19 05:54 Dose: 650 mg Documented by: Al Hydrox/Mg Hydrox/Simethicone (Maalox) 30 ml PO Q4H PRN PRN Reason: GI Upset Stop: 12/10/19 10:49 Bismuth Subsalicylate (Kaopectate) 15 ml PO PRN PRN PRN Reason: Loose Stool Stop: 12/10/19 10:49 [facility] Stop: 12/11/19 07:59 Last Admin: 11/11/19 07:47 Dose: 50 mcg Documented by: [place] Carbonate ([place] Carbonate) 1,350 mg PO [facility] Stop: 12/10/19 20:59 Last Admin: 11/10/19 21:56 Dose: 1,350 mg Documented by: Lorazepam (Ativan) 0.5 mg PO [facility] Stop: 12/10/19 21:59 Last Admin: 11/10/19 21:56 Dose: 0.5 mg Documented by: Magnesium Hydroxide (Milk Of Magnesia) 30 ml PO DAILY PRN PRN Reason: Constipation Stop: 12/10/19 10:49 Olanzapine (Zyprexa) 10 mg IM Q6H PRN PRN Reason: psychosis Stop: 12/10/19 10:59 Quetiapine Fumarate (Seroquel) 600 mg PO [facility] Stop: 12/10/19 20:59 Last Admin: 11/10/19 21:57 Dose: 600 mg Documented by: Quetiapine Fumarate (Seroquel) 300 mg PO QAM RAGHAVENDRA Stop: 12/11/19 08:59 Last Admin: 11/11/19 07:47 Dose: 300 mg Documented by: Risperidone (Risperdal) 0.5 mg PO QAM RAGHAVENDRA Stop: 12/11/19 08:59 Last Admin: 11/11/19 07:47 Dose: 0.5 mg Documented by: Risperidone (Risperdal) 1 mg PO HS RAGHAVENDRA Stop: 12/10/19 20:59 Last Admin: 11/10/19 21:57 Dose: 1 mg Documented by: Risperidone (Risperdal) 1 mg PO Q6H PRN PRN Reason: psychosis Stop: 12/10/19 10:54 Sodium Chloride ([place] Nasal) 1 - 2 sprays NA PRN PRN PRN Reason: Nasal Dryness/Congestion Stop: 12/10/19 10:49 Mental Health & Subst Abuse Tx Psychiatrist Name of Psychiatrist: Dr. Candelario Psychiatrist's Psychiatric Appointment Comment: [address], [address], [place], [place] Therapist Name of Therapist: None Ballistics Tester Name of Ballistics Tester: boat worker Hayes Nielsen Post Discharge Appointments Contact Information Discharge Discharge Address: [address] [place] [id number] (1) Hypothyroidism Hypothyroidism type: unspecified Qualified Code(s): E03.9 - Hypothyroidism, unspecified (2) Schizoaffective disorder Schizoaffective disorder type: bipolar Qualified Code(s): F25.0 - Schizoaffective disorder, bipolar type
[2019-11-11] MEDS ORDERED: LORazepam 0.5 MG TAB PO SCH (09:00)
[2019-11-11] MEDS: BuPROPion XL 150 MG TABCR PO SCH (12:09)
[2019-11-11] MEDS: LORazepam 0.5 MG TAB PO SCH (21:35)
[2019-11-11] MEDS: risperiDONE 1 MG TABLET PO SCH (21:36)
[2019-11-11] MEDS: LITHIUM CARBONATE 300 MG TAB PO SCH (21:37)
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
[2019-11-12] MEDS: LEVOTHYROXINE SODIUM 50 MCG TABLET PO SCH (08:21)
[2019-11-12] MEDS: QUETIAPINE FUMARATE 300 MG TABLET PO SCH ×2 (08:21→21:13)
[2019-11-12] MEDS: risperiDONE 0.5 MG TABLET PO SCH (08:21)
[2019-11-12] MEDS: BuPROPion XL 150 MG TABCR PO SCH (08:21)
[2019-11-12] MEDS ORDERED: risperiDONE 0.5 MG TABLET PO ONE (11:00)
[2019-11-12] MEDS: VENLAFAXINE HCL XR 75 MG CAPXR PO SCH (12:19)
[2019-11-12] MEDS: LORazepam 0.5 MG TAB PO SCH (21:13)
[2019-11-12] MEDS: risperiDONE 1 MG TABLET PO SCH (21:13)
[2019-11-12] MEDS: LITHIUM CARBONATE 300 MG TAB PO SCH (21:14)
[2019-11-12] MEDS ORDERED: risperiDONE 1 MG TABLET PO SCH (22:00)
--- NOTE | 2019-11-13 08:14 | Psychiatric Progress Note ---
Date of Service November 13, 2019 Impression / Recommendations Impression 34-year-old male with schizoaffective disorder bipolar type who was admitted involuntarily after being brought to the ED by police on a 302 warrant due to psychosis, erratic and disorganized behavior in the community, and inability to provide for his own basic needs and safety. Police were called by the patient's neighbor following an altercation between the two, and the patient appeared altered, disoriented, and family reported he was not taking his medication. His lithium level was low on presentation, and he admits to poor medication adherence, which appears to be due to psychosis, disorganization, and forgetting to take meds. He was initially continued on his home doses of lithium, quetiapine, lorazepam, and risperidone, with additional risperidone as needed doses. Venlafaxine XR and bupropion were resumed after obtaining his outpatient medication list, to target depressed mood. He initially declined to involve his parents in his treatment, but then agreed to a family meeting which was held 0 11/12/2019. It was a difficult meeting, as his parents want to support him and are concerned about him and the severity of his symptoms, but he feels they are intrusive and does not want them to be involved in his personal affairs. He was willing for referral for mobile med management, and considering accepting recommendations for case management services, which will be important for him to have additional support as one of his goals is to eventually live independently. He signed in voluntarily today, 11/13/2019. Inpatient psychiatric treatment remains medically necessary at this time due to severity of psychotic symptoms, inability to provide for his own basic needs, and risk of harm to both himself or others as a result of his psychosis. He indicates willingness to sign in voluntarily. (1) Schizoaffective disorder: 11/09 - Admitted to a locked inpatient behavioral health unit, on q15 minute safety checks - Outpatient psychiatrist has confirmed diagnosis of schizoaffective disorder, bipolar type. Will require records and continued coordination regarding patient's current medication list and other information surrounding his history. - At this time, will continue lithium 1350mg qHS, lorazepam 0.5mg qHS, quetiapine 300mg qAM and 600mg qHS, and risperidone 0.5mg qAM and 1mg qHS (with 1mg prn dose available). Holding venlafaxine until medication list can be confirmed - can re-initiate if patient reports symptoms of discontinuation syndrome. UDS positive for MDMA, with recent prescription for bupropion (though not clear if this is a current or past medication). - Fasting labs obtained by outpatient psychiatrist in 02/2019. HgbA1c was 5.1%. Triglycerides elevated at 217. Total cholesterol within normal limits at 139. LDL - 58; HDL - 38. - Pt's creatinine was mildly elevated in the ED - given continued use of lithium, will repeat BMP for tomorrow morning - Encourage participation in group and recreational therapies. Will assist with development of healthy and effective coping strategies - Encourage family meeting to involve parents in safety/discharge planning - unwilling to sign an JERAMIE at this time - Arrange appropriate aftercare appointments 11/10 - Creatinine elevated on admission (1.5), recheck today is 1.07. Resumed lithium yesterday, will recheck trough after 5 days (11/14). - Resume home dose of bupropion XL 250 mg every morning. - Collateral information from parents would be very helpful, and today patient indicates willingness to sign an JERAMIE and schedule a family meeting. - Coordinate care with Dr. Candelario, outpatient psychiatrist. He will need to be rescheduled with his therapist, Gia Ca - Refer for BCM for additional support. 11/11 - Resume home dose of venlafaxine XR as mood has been lower here and was previously on 75mg daily. - Increase risperidone to 1mg bid and continue quetiapine which was increased to to 300mg qam and 600mg HS. - Family meeting with parents, and coordinate care with Dr. Candelario. Parents confirmed there are no guns in the home. - Recommend increase in OP supports including BCM and mobile med management. - Continue 302 involuntary commitment and consider filing for 303 involuntary commitment, as he remains paranoid, depressed, and thought blocked, and parents have concerns about him coming home before he is more stable (2 episodes leading to potential arrest in the past 2 weeks, ability to communicate with parents, willingness to accept increased supports), versus allowing him to sign in voluntarily, which he indicates a willingness to do today. - Mandated [employer] report regarding impaired driving resulting in ?DUI earlier this month, and that due to impairing condition and multiple medications that can impair focus, he should not drive until he is stable and his physician evaluates him and determines he can resume driving. Will discuss further with patient once he is less psychotic/not blocked. 11/12 -Patient signed in voluntarily and is now on a 201 voluntary commitment. -Continue current medication regimen, observe for oversedation (somnolence improving, suspect was at least partially related to decreased sleep prior to admission). -Reviewed recommendations not to drive until he is fully stable with the patient, and that mandated [employer] form was submitted. He expressed understanding and agreement. (2) Hypothyroidism: 11/09 - Continue home dose of levothyroxine 50mcg qAM. TSH 3.760. Risk Factors Assessment Male: Yes : Yes Do You Have Access To A Gun?: No Health Problems: No Mental Health Diagnoses: Yes Substance Use Disorders: No Previous Psychiatric Hospitalization: Yes Hopelessness: No Smoker: No Protective Factors Assessment : No Responsible for Young Children: No Employed: No Stable Relationships: No Supportive Family: Yes (But patient views parents as intrusive and unhelpful.) Good Rapport with Provider: Yes Interval History Identifying Information CINTIA ACOSTA is a 34-year-old M who currently lives in [place] with his mother and father, has a history of schizoaffective disorder, bipolar type, and was admitted on 11/10/19 10:51 on a 302 involuntary commitment for delusions/paranoia leading to a verbal altercation with a neighbor. Police were called to patient's home and he was brought to the ED for further evaluation. Chief Complaint "Alright". Review of Systems Sleep Information Total Hours of Sleep: 7.25 Sleep Comments: pt on q-15 minute checks Meal Information Percent Meal Consumed - Breakfast: 100 Percent Meal Consumed - Lunch: 100 Percent Meal Consumed - Dinner: 100 Subjective Subjective Patient was seen & assessed and interval progress reviewed with nursing and social work. Staff report he requested to use his home CPAP machine. He was isolated and withdrawn to his room most of the day, was guarded, with poor eye contact and no spontaneous interaction with others. He napped at times, and did not attend groups. He did have a long family meeting with the child welfare social worker, his parents, and myself, during which he was able to express his desire to be more independent and wish for his parents to leave him alone. He agreed to a referral to [facility], and is considering a referral for case management. His father called this morning and spoke with staff for > 30 minutes, was provided an update on the patient's progress in treatment, and his questions answered. On my assessment today, he reports mood is "in the middle," and is unsure if he feels it has improved since admission. He reports sleeping a lot yesterday, which she attributes to "I really wore myself out before coming here." He feels he is functioning "at a more steady pace," and wh en asked to clarify, says it is easier for him to fall asleep at night. Prior to admission, he would try to go to sleep but would lie in bed ruminating for hours. He is still struggling with focus and concentration. He denies visual hallucinations in the past 24 hours, but continues to have auditory hallucinations of "clicking sounds," and other sounds, "like the weather," that he does not believe are real. He thinks that his family meeting went well, but is not sure that there will be any change in the problems with his parents, as they are longstanding. He continues to state a long-term goal of moving out and living independently, but states he wants to "get healthy first." Discussed the mandated [place] [employer] report and recommendations that he not drive until he has stable, and he expressed understanding and agreement. Also discussed his request to sign in voluntarily for treatment and completed the 201 form. Summary of Past History Care coordinated with Dr. Candelario: Patient was on Invega Sustenna but it was discontinued due to sedation, weight gain, and negative psychotic symptoms. His p.o. intake has decreased over the past 2 weeks in the context of worsening anxiety and paranoia. He believes he has a variant of bipolar disorder, as well as significant social anxiety. He was doing well until he started to decompensate several months ago. His mother called about a month ago and reported behavior changes. The home situation is problematic, as both parents are destabilizing factors for the patient, especially his father. He has not been able to identify an alternative living situation that he can afford. The patient rescinded releases for Dr. Candelario to talk with his parents about a week ago as he was frustrated that they were intruding into his affairs. He has been extremely frustrated due to his inability to live independently of his parents, and feeling hassled by them. His therapist Gia has been interacting with the parents as well. Physical Exam Psychiatric Orientation: alert and cooperative Knew the year and month, but not the date Apperance: appropriately dressed, appropriately groomed and appeared stated age Eye Contact: + fair eye contact Motor Behavior: steady gait and station and no abnormal motor movements Still slightly slowed, but less so than earlier in hospitalization. Minimal del ays, more fluent. Affect: + blunted affect Slightly improved affect, smiled briefly and appropriately "Alright." Thought Process: goal directed thought process Thought Content: reality based without delusions Mild thought blocking Suicidal Thoughts: denies suicidal thoughts Homicidal Thoughts: denies homicidal thoughts Hallucinations: + auditory hallucinations; no visual hallucinations Cognition: language grossly intact; + recent memory not intact and + attention not intact Insight: + fair insight Judgement: + fair judgement Vital Signs (Past 24 Hours) Last Vital Signs Temp 36.5 C 11/13/19 06:48 Pulse 83 11/13/19 06:49 Resp 18 11/13/19 06:48 BP 138/88 11/13/19 06:49 Pulse Ox 100 11/10/19 11:23 Results & Data ([facility]) Current Inpatient Medications Current Inpatient Medications: Current Inpatient Medications Acetaminophen (Tylenol) 650 mg PO Q4H PRN PRN Reason: Headache or Minor Fever Stop: 12/10/19 10:49 Last Admin: 11/11/19 05:54 Dose: 650 mg Documented by: Al Hydrox/Mg Hydrox/Simethicone (Maalox) 30 ml PO Q4H PRN PRN Reason: GI Upset Stop: 12/10/19 10:49 Bismuth Subsalicylate (Kaopectate) 15 ml PO PRN PRN PRN Reason: Loose Stool Stop: 12/10/19 10:49 Bupropion HCl (Wellbutrin-Xl) 150 mg PO DAILY RAGHAVENDRA Stop: 12/11/19 11:29 Last Admin: 11/12/19 08:21 Dose: 150 mg Documented by: Levothyroxine Sodium (Synthroid) 50 mcg PO DAILYBB RAGHAVENDRA Stop: 12/11/19 07:59 Last Admin: 11/12/19 08:21 Dose: 50 mcg Documented by: [place] Carbonate ([place] Carbonate) 1,350 mg PO HS RAGHAVENDRA Stop: 12/10/19 20:59 Last Admin: 11/12/19 21:14 Dose: 1,350 mg Documented by: Lorazepam (Ativan) 0.5 mg PO HS RAGHAVENDRA Stop: 12/10/19 21:59 Last Admin: 11/12/19 21:13 Dose: 0.5 mg Documented by: Magnesium Hydroxide (Milk Of Magnesia) 30 ml PO DAILY PRN PRN Reason: Constipation Stop: 12/10/19 10:49 Olanzapine (Zyprexa) 10 mg IM Q6H PRN PRN Reason: psychosis Stop: 12/10/19 10:59 Quetiapine Fumarate (Seroquel) 600 mg PO HS RAGHAVENDRA Stop: 12/10/19 20:59 Last Admin: 11/12/19 21:13 Dose: 600 mg Documented by: Quetiapine Fumarate (Seroquel) 300 mg PO QAM RAGHAVENDRA Stop: 12/11/19 08:59 Last Admin: 11/12/19 08:21 Dose: 300 mg Documented by: Risperidone (Risperdal) 1 mg PO Q6H PRN PRN Reason: psychosis Stop: 12/10/19 10:54 Risperidone (Risperdal) 1 mg PO BID RAGHAVENDRA Stop: 12/12/19 20:59 Last Admin: 11/12/19 21:13 Dose: 1 mg Documented by: Sodium Chloride ([place] Nasal) 1 - 2 sprays NA PRN PRN PRN Reason: Nasal Dryness/Congestion Stop: 12/10/19 10:49 Venlafaxine HCl (Effexor Extended Release) 75 mg PO DAILY RAGHAVENDRA Stop: 12/12/19 10:29 Last Admin: 11/12/19 12:19 Dose: 75 mg Documented by: Mental Health & Subst Abuse Tx Psychiatrist Name of Psychiatrist: Dr. Candelario Psychiatrist's Psychiatric Appointment Comment: [address] [facility], [address], [place], [place] Therapist Name of Therapist: [facility] - Gia Nichols LCSW Therapist's Date of Therapist Appointment: 11/17/19 Time of Therapist Appointment: 5:00 p.m. Therapy Appointment Comment: Teletherapy sessions Tub Wash Operator Name of Tub Wash Operator: [facility] Phone Number for Tub Wash Operator: [phone] Case Management Appointment Comment: [address], [place], [place] Post Discharge Appointments Contact Information Discharge Discharge Address: [address] [place] [address], [place] [address] (1) Hypothyroidism Hypothyroidism type: unspecified Qualified Code(s): E03.9 - Hypothyroidism, unspecified (2) Schizoaffective disorder Schizoaffective disorder type: bipolar Qualified Code(s): F25.0 - Schizoaffective disorder, bipolar type
[2019-11-13] MEDS: QUETIAPINE FUMARATE 300 MG TABLET PO SCH ×2 (08:34→21:19)
[2019-11-13] MEDS: BuPROPion XL 150 MG TABCR PO SCH (08:34)
[2019-11-13] MEDS: LEVOTHYROXINE SODIUM 50 MCG TABLET PO SCH (08:34)
[2019-11-13] MEDS: VENLAFAXINE HCL XR 75 MG CAPXR PO SCH (08:34)
[2019-11-13] MEDS: risperiDONE 1 MG TABLET PO SCH ×2 (08:34→21:59)
[2019-11-13 12:30] LABS: MDA negative; MDEA negative; MDMA (Ecstasy) Urine, Confirm negative
[2019-11-13] MEDS: LORazepam 0.5 MG TAB PO SCH (21:18)
[2019-11-13] MEDS: LITHIUM CARBONATE 300 MG TAB PO SCH (21:19)
[2019-11-14] MEDS: LEVOTHYROXINE SODIUM 50 MCG TABLET PO SCH (07:48)
[2019-11-14] MEDS: QUETIAPINE FUMARATE 300 MG TABLET PO SCH ×2 (08:15→21:08)
[2019-11-14] MEDS: BuPROPion XL 150 MG TABCR PO SCH (08:15)
[2019-11-14] MEDS: VENLAFAXINE HCL XR 75 MG CAPXR PO SCH (08:15)
[2019-11-14] MEDS: risperiDONE 1 MG TABLET PO SCH ×2 (08:15→21:07)
--- NOTE | 2019-11-14 09:31 | Psychiatric Progress Note ---
Date of Service November 14, 2019 Impression / Recommendations Impression 34-year-old male with schizoaffective disorder bipolar type who was admitted involuntarily after being brought to the ED by police on a 302 warrant due to psychosis, erratic and disorganized behavior in the community, and inability to provide for his own basic needs and safety. Police were called by the patient's neighbor following an altercation between the two, and the patient appeared altered, disoriented, and family reported he was not taking his medication. His lithium level was low on presentation, and he admits to poor medication adherence, which appears to be due to psychosis, disorganization, and forgetting to take meds. He was initially continued on his home doses of lithium, quetiapine, lorazepam, and risperidone, with additional risperidone as needed doses. Venlafaxine XR and bupropion were resumed after obtaining his outpatient medication list, to target depressed mood. He initially declined to involve his parents in his treatment, but then agreed to a family meeting which was held 0 11/12/2019. It was a difficult meeting, as his parents want to support him and are concerned about him and the severity of his symptoms, but he feels they are intrusive and does not want them to be involved in his personal affairs. He was willing for referral for mobile med management, and completed intake assessment for case management services, which will be important for him to have additional support as one of his goals is to eventually live independently. He signed in voluntarily on 11/13/2019. Inpatient psychiatric treatment remains medically necessary at this time due to severity of psychotic symptoms, inability to provide for his own basic needs, and risk of harm to both himself or others as a result of his psychosis. While his condition is improving, ongoing psychiatric admission is recommended as his outpatient supports report ongoing concern related to his safety. Anticipate discharge early next week when it is anticipated he will have better access to outpatient psychiatric supports. (1) Schizoaffective disorder: 11/09 - Admitted to a locked inpatient behavioral health unit, on q15 minute safety checks - Outpatient psychiatrist has confirmed diagnosis of schizoaffective disorder, bipolar type. Will require records and continued coordination regarding patient's current medication list and other information surrounding his history. - At this time, will continue lithium 1350mg qHS, lorazepam 0.5mg qHS, quetiapine 300mg qAM and 600mg qHS, and risperidone 0.5mg qAM and 1mg qHS (with 1mg prn dose available). Holding venlafaxine until medication list can be confirmed - can re-initiate if patient reports symptoms of discontinuation syndrome. UDS positive for MDMA, with recent prescription for bupropion (though not clear if this is a current or past medication). - Fasting labs obtained by outpatient psychiatrist in 02/2019. HgbA1c was 5.1%. Triglycerides elevated at 217. Total cholesterol within normal limits at 139. LDL - 58; HDL - 38. - Pt's creatinine was mildly elevated in the ED - given continued use of lithium, will repeat BMP for tomorrow morning - Encourage participation in group and recreational therapies. Will assist with development of healthy and effective coping strategies - Encourage family meeting to involve parents in safety/discharge planning - unwilling to sign an JERAMIE at this time - Arrange appropriate aftercare appointments 11/10 - Creatinine elevated on admission (1.5), recheck today is 1.07. Resumed lithium yesterday, will recheck trough after 5 days (11/14). - Resume home dose of bupropion XL 250 mg every morning. - Collateral information from parents would be very helpful, and today patient indicates willingness to sign an JERAMIE and schedule a family meeting. - Coordinate care with Dr. Candelario, outpatient psychiatrist. He will need to be rescheduled with his therapist, Gia Ca - Refer for BCM for additional support. 11/11 - Resume home dose of venlafaxine XR as mood has been lower here and was previously on 75mg daily. - Increase risperidone to 1mg bid and continue quetiapine which was increased to to 300mg qam and 600mg HS. - Family meeting with parents, and coordinate care with Dr. Candelario. Parents confirmed there are no guns in the home. - Recommend increase in OP supports including BCM and mobile med management. - Continue 302 involuntary commitment and consider filing for 303 involuntary commitment, as he remains paranoid, depressed, and thought blocked, and parents have concerns about him coming home before he is more stable (2 episodes leading to potential arrest in the past 2 weeks, ability to communicate with parents, willingness to accept increased supports), versus allowing him to sign in voluntarily, which he indicates a willingness to do today. - Mandated [employer] report regarding impaired driving resulting in ?DUI earlier this month, and that due to impairing condition and multiple medications that can impair focus, he should not drive until he is stable and his physician evaluates him and determines he can resume driving. Will discuss further with patient once he is less psychotic/not blocked. 11/12 -Patient signed in voluntarily and is now on a 201 voluntary commitment. -Continue current medication regimen, observe for oversedation (somnolence improving, suspect was at least partially related to decreased sleep prior to admission). -Reviewed recommendations not to drive until he is fully stable with the patient, and that mandated [employer] form was submitted. He expressed understanding and agreement. 11/13 - Continue current medication regimen - Pt reports willingness for additional outpatient supports - has completed intake with case management and referral was sent for [facility] medication management - Family meeting yesterday to discuss discharge/safety planning - patient is planning to return to his previous living situation, in an apartment off partent's house (2) Hypothyroidism: 11/09 - Continue home dose of levothyroxine 50mcg qAM. TSH 3.760. Risk Factors Assessment Male: Yes : Yes Do You Have Access To A Gun?: No Health Problems: No Mental Health Diagnoses: Yes Substance Use Disorders: No Previous Psychiatric Hospitalization: Yes Hopelessness: No Smoker: No Protective Factors Assessment : No Responsible for Young Children: No Employed: No Stable Relationships: No Supportive Family: Yes (But patient views parents as intrusive and unhelpful.) Good Rapport with Provider: Yes Interval History Identifying Information CINTIA ACOSTA is a 34-year-old M who currently lives in [place] with his mother and father, has a history of schizoaffective disorder, bipolar type, and was admitted on 11/10/19 10:51 on a 302 involuntary commitment for delusions/paranoia leading to a verbal altercation with a neighbor. Police were called to patient's home and he was brought to the ED for further evaluation. Pt signed in voluntarily on 11/13/2019 for continued inpatient psychiatric treatment. Chief Complaint "Good. I'm a little tired." Review of Systems Notes Constitutional: reports ongoing fatigue, but admits to overall improved over the course of his hospitalization Cardiovascular: denied Respiratory: denied Gastrointestinal: denied Neurological: denied Psychiatric: denies symptoms other than stated above Total of at least 10 systems reviewed, pertinent positives as above and in HPI. Sleep Information Total Hours of Sleep: 5.25 Sleep Comments: 1:1 cpap use at HS. Meal Information Percent Meal Consumed - Breakfast: 100 Percent Meal Consumed - Lunch: 100 Percent Meal Consumed - Dinner: 100 Subjective Subjective Patient was seen & assessed and interval progress reviewed with treatment team. Staff report the patient has continued to attend group programming and remains cooperative with treatment. Parents continues to be concerned about his condition due to the severity of decompensation prior to admission. While discharge plan has been arranged, they continue to have concern regarding patient's safety outside of the hospital setting. Pt was seen today to assess progress since admission. Pt states that he is feeling "good" today, but admits to fatigue. Pt does state he has been experiencing less daytime fatigue overall. Pt has been attending group programming and is finding groups helpful, stating "we were learning about ways to deal with stress." We discussed his willingness for additional outpatient supports. He completed an intake phone call for case management and has been referred for [facility] medication management. Pt states that he is willing to participate with these supports. Pt states the meeting with his parents "went pretty good I think." He states they discussed plans for him to return home and seemed to come to an understanding of each other's expectations per patient report. Pt denies SI/HI. While he continues to be unable to recall specific details related to events leading to his admission, he does states that he has not ill-feelings toward his neighbor and is not having any thoughts to harm any general or specific individuals. While patient reports improvement, he does verbalize understanding of the value of ensuring stability prior to being discharged as "I don't want to leave and have this happen again." Pt denies other needs or concerns from staff at this time. Physical Exam Psychiatric Orientation: alert, oriented to person, oriented to place and cooperative Apperance: appropriately dressed, appropriately groomed and appeared stated age Eye Contact: good eye contact Motor Behavior: steady gait and station and no abnormal motor movements Speech: normal rate/rhythm/volume of speech Affect: + blunted affect Mood: no depressed mood ("Good. A little tired.") Thought Process: goal directed thought process and clear/coherent thought process Some mild thought blocking, but seems improved overall Thought Content: reality based without delusions (does not verbalize any delusional thought content) Suicidal Thoughts: denies suicidal thoughts Homicidal Thoughts: denies homicidal thoughts, denies homicidal plan and denies homicidal intent including denial of specific thoughts to harm his neighbors and any specific individuals Hallucinations: no auditory hallucinations and no visual hallucinations Cognition: attention grossly intact and language grossly intact; + recent memory not intact (continues to be unable to explain events leading to admission) Insight: + fair insight Judgement: + fair judgement Vital Signs (Past 24 Hours) Last Vital Signs Temp 36.5 C 11/14/19 06:00 Pulse 84 11/14/19 06:40 Resp 16 11/14/19 06:00 BP 132/81 11/14/19 06:40 Pulse Ox 98 11/13/19 23:09 Results & Data ([facility]) Laboratory Results Laboratory Results - last 24 hr 11/09/19 Unknown Urine MDEA negative MDMA negative Urine MDMA negative Current Inpatient Medications Current Inpatient Medications: Current Inpatient Medications Acetaminophen (Tylenol) 650 mg PO Q4H PRN PRN Reason: Headache or Minor Fever Stop: 12/10/19 10:49 Last Admin: 11/11/19 05:54 Dose: 650 mg Documented by: Al Hydrox/Mg Hydrox/Simethicone (Maalox) 30 ml PO Q4H PRN PRN Reason: GI Upset Stop: 12/10/19 10:49 Bismuth Subsalicylate (Kaopectate) 15 ml PO PRN PRN PRN Reason: Loose Stool Stop: 12/10/19 10:49 Bupropion HCl (Wellbutrin-Xl) 150 mg PO DAILY [facility] Stop: 12/11/19 11:29 Last Admin: 11/14/19 08:15 Dose: 150 mg Documented by: Levothyroxine [facility]) [facility] Stop: 12/11/19 07:59 Last Admin: 11/14/19 07:48 Dose: 50 mcg Documented by: Kermit Carbonate (Kermit Carbonate) 1,350 mg PO HS [facility] Stop: 12/10/19 20:59 Last Admin: 11/13/19 21:19 Dose: 1,350 mg Documented by: Lorazepam (Ativan) 0.5 mg PO HS [facility] Stop: 12/10/19 21:59 Last Admin: 11/13/19 21:18 Dose: 0.5 mg Documented by: Magnesium Hydroxide (Milk Of Magnesia) 30 ml PO DAILY PRN PRN Reason: Constipation Stop: 12/10/19 10:49 Olanzapine (Zyprexa) 10 mg IM Q6H PRN PRN Reason: psychosis Stop: 12/10/19 10:59 Quetiapine Fumarate (Seroquel) 600 mg PO HS [facility] Stop: 12/10/19 20:59 Last Admin: 11/13/19 21:19 Dose: 600 mg Documented by: Quetiapine Fumarate (Seroquel) 300 mg PO QAM RAGHAVENDRA Stop: 12/11/19 08:59 Last Admin: 11/14/19 08:15 Dose: 300 mg Documented by: Risperidone (Risperdal) 1 mg PO Q6H PRN PRN Reason: psychosis Stop: 12/10/19 10:54 Risperidone (Risperdal) 1 mg PO BID [facility] Stop: 12/12/19 20:59 Last Admin: 11/14/19 08:15 Dose: 1 mg Documented by: Sodium Chloride ([place] Nasal) 1 - 2 sprays NA PRN PRN PRN Reason: Nasal Dryness/Congestion Stop: 12/10/19 10:49 Venlafaxine HCl (Effexor Extended Release) 75 mg PO DAILY RAGHAVENDRA Stop: 12/12/19 10:29 Last Admin: 11/14/19 08:15 Dose: 75 mg Documented by: Mental Health & Subst Abuse Tx Psychiatrist Name of Psychiatrist: Dr. Candelario Psychiatrist's Psychiatric Appointment Comment: [facility] [address] [facility] [address], [place], [place] Therapist Name of Therapist: [facility] - Gia Nichols LCSW Therapist's Date of Therapist Appointment: 11/17/19 Time of Therapist Appointment: 5:00 p.m. Therapy Appointment Comment: Teletherapy sessions Healthcare Sales Representative Name of Healthcare Sales Representative: [employer] Phone Number for Healthcare Sales Representative: [phone] Case Management Appointment Comment: [address] [facility], [facility] [address], [place] Post Discharge Appointments Other #1: Name of Aftercare Appointment: [place] Mobile Medication Management - Mackenzie Phone Number of Aftercare Appointment: [phone] Contact Information Discharge Discharge [address]: [address] [place] [address] (1) Hypothyroidism Hypothyroidism type: unspecified Qualified Code(s): E03.9 - Hypothyroidism, unspecified (2) Schizoaffective disorder Schizoaffective disorder type: bipolar Qualified Code(s): F25.0 - Schizoaffective disorder, bipolar type
[2019-11-14] MEDS: LORazepam 0.5 MG TAB PO SCH (21:07)
[2019-11-14] MEDS: LITHIUM CARBONATE 300 MG TAB PO SCH (21:08)
[2019-11-15] MEDS: LEVOTHYROXINE SODIUM 50 MCG TABLET PO SCH (08:34)
[2019-11-15] MEDS: QUETIAPINE FUMARATE 300 MG TABLET PO SCH ×2 (08:34→22:58)
[2019-11-15] MEDS: BuPROPion XL 150 MG TABCR PO SCH (08:34)
[2019-11-15] MEDS: VENLAFAXINE HCL XR 75 MG CAPXR PO SCH (08:50)
[2019-11-15] MEDS: risperiDONE 1 MG TABLET PO SCH ×2 (08:50→22:57)
--- NOTE | 2019-11-15 14:43 | Psychiatric Progress Note ---
Date of Service November 15, 2019 Impression / Recommendations Impression 34-year-old male with schizoaffective disorder bipolar type who was admitted involuntarily after being brought to the ED by police on a 302 warrant due to psychosis, erratic and disorganized behavior in the community, and inability to provide for his own basic needs and safety. Police were called by the patient's neighbor following an altercation between the two, and the patient appeared altered, disoriented, and family reported he was not taking his medication. His lithium level was low on presentation, and he admits to poor medication adherence, which appears to be due to psychosis, disorganization, and forgetting to take meds. He was initially continued on his home doses of lithium, quetiapine, lorazepam, and risperidone, with additional risperidone as needed doses. Venlafaxine XR and bupropion were resumed after obtaining his outpatient medication list, to target depressed mood. He initially declined to involve his parents in his treatment, but then agreed to a family meeting which was held 0 11/12/2019. It was a difficult meeting, as his parents want to support him and are concerned about him and the severity of his symptoms, but he feels they are intrusive and does not want them to be involved in his personal affairs. He was willing for referral for mobile med management, and completed intake assessment for case management services, which will be important for him to have additional support as one of his goals is to eventually live independently. He signed in voluntarily on 11/13/2019. Inpatient psychiatric treatment remains medically necessary at this time due to severity of psychotic symptoms, inability to provide for his own basic needs, and risk of harm to both himself or others as a result of his psychosis. While his condition is improving, ongoing psychiatric admission is recommended as his outpatient supports report ongoing concern related to his safety. Anticipate discharge early next week when it is anticipated he will have better access to outpatient psychiatric supports. (1) Schizoaffective disorder: 11/09 - Admitted to a locked inpatient behavioral health unit, on q15 minute safety checks - Outpatient psychiatrist has confirmed diagnosis of schizoaffective disorder, bipolar type. Will require records and continued coordination regarding patient's current medication list and other information surrounding his history. - At this time, will continue lithium 1350mg qHS, lorazepam 0.5mg qHS, quetiapine 300mg qAM and 600mg qHS, and risperidone 0.5mg qAM and 1mg qHS (with 1mg prn dose available). Holding venlafaxine until medication list can be confirmed - can re-initiate if patient reports symptoms of discontinuation syndrome. UDS positive for MDMA, with recent prescription for bupropion (though not clear if this is a current or past medication). - Fasting labs obtained by outpatient psychiatrist in 02/2019. HgbA1c was 5.1%. Triglycerides elevated at 217. Total cholesterol within normal limits at 139. LDL - 58; HDL - 38. - Pt's creatinine was mildly elevated in the ED - given continued use of lithium, will repeat BMP for tomorrow morning - Encourage participation in group and recreational therapies. Will assist with development of healthy and effective coping strategies - Encourage family meeting to involve parents in safety/discharge planning - unwilling to sign an JERAMIE at this time - Arrange appropriate aftercare appointments 11/10 - Creatinine elevated on admission (1.5), recheck today is 1.07. Resumed lithium yesterday, will recheck trough after 5 days (11/14). - Resume home dose of bupropion XL 250 mg every morning. - Collateral information from parents would be very helpful, and today patient indicates willingness to sign an JERAMIE and schedule a family meeting. - Coordinate care with Dr. Candelario, outpatient psychiatrist. He will need to be rescheduled with his therapist, Gia Ca - Refer for BCM for additional support. 11/11 - Resume home dose of venlafaxine XR as mood has been lower here and was previously on 75mg daily. - Increase risperidone to 1mg bid and continue quetiapine which was increased to to 300mg qam and 600mg HS. - Family meeting with parents, and coordinate care with Dr. Candelario. Parents confirmed there are no guns in the home. - Recommend increase in OP supports including BCM and mobile med management. - Continue 302 involuntary commitment and consider filing for 303 involuntary commitment, as he remains paranoid, depressed, and thought blocked, and parents have concerns about him coming home before he is more stable (2 episodes leading to potential arrest in the past 2 weeks, ability to communicate with parents, willingness to accept increased supports), versus allowing him to sign in voluntarily, which he indicates a willingness to do today. - Mandated [employer] report regarding impaired driving resulting in ?DUI earlier this month, and that due to impairing condition and multiple medications that can impair focus, he should not drive until he is stable and his physician evaluates him and determines he can resume driving. Will discuss further with patient once he is less psychotic/not blocked. 11/12 -Patient signed in voluntarily and is now on a 201 voluntary commitment. -Continue current medication regimen, observe for oversedation (somnolence improving, suspect was at least partially related to decreased sleep prior to admission). -Reviewed recommendations not to drive until he is fully stable with the patient, and that mandated [employer] form was submitted. He expressed understanding and agreement. 11/13 and 11/14 - Continue current medication regimen - Pt reports willingness for additional outpatient supports - has completed intake with case management and referral was sent for [facility] medication management - Family meeting yesterday to discuss discharge/safety planning - patient is planning to return to his previous living situation, in an apartment off partent's house (2) Hypothyroidism: 11/09 - Continue home dose of levothyroxine 50mcg qAM. TSH 3.760. Risk Factors Assessment Male: Yes : Yes Do You Have Access To A Gun?: No Health Problems: No Mental Health Diagnoses: Yes Substance Use Disorders: No Previous Psychiatric Hospitalization: Yes Hopelessness: No Smoker: No Protective Factors Assessment : No Responsible for Young Children: No Employed: No Stable Relationships: No Supportive Family: Yes (But patient views parents as intrusive and unhelpful.) Good Rapport with Provider: Yes Interval History Identifying Information CINTIA ACOSTA is a 34-year-old M who currently lives in [place] with his mother and father, has a history of schizoaffective disorder, bipolar type, and was admitted on 11/10/19 10:51 on a 302 involuntary commitment for delusions/paranoia leading to a verbal altercation with a neighbor. Police were called to patient's home and he was brought to the ED for further evaluation. Pt signed in voluntarily on 11/13/2019 for continued inpatient psychiatric treatment. Chief Complaint "I think it is going okay today". Review of Systems Sleep Information Total Hours of Sleep: 5 Sleep Comments: 1:1 staff with use of his CPap Meal Information Percent Meal Consumed - Breakfast: 100 Percent Meal Consumed - Lunch: 100 Percent Meal Consumed - Dinner: 100 Subjective Subjective Patient was seen & assessed and interval progress reviewed with treatment team Per nursing the patient described his mood as "good" rating it as a 6 out of 10. He has been noted to be out of his room engaged by watching TV or walking he has minimal but positive interactions with peers and staff. Nursing had a conversation with patient's father this morning providing psychiatric education that went well. Yesterday, patient had a intake with [facility] for nurse outreach case manager. I met with patient in his room with his permission. He engaged in was cooperative and polite. He stated his mood was "pretty good" he felt improved compared to when he came to the hospital when I asked him to describe this further he stated "my thoughts are more clear" he stated "I am not as agitated and I am not as anxious." He stated that he called his parents and spoke with them and was able to find out about how his dog kayley was doing and that was nice. He is looking forward to going home. ROS: He does have dry mouth from his medications but denies other side effects. He denies any physical concerns stating he is eating well he is sleeping well. Physical Exam Psychiatric Orientation: alert and oriented x 3 Apperance: + disheveled Lying in bed having been woken from a nap Eye Contact: good eye contact Motor Behavior: no abnormal motor movements Speech: normal rate/rhythm/volume of speech Affect: + blunted affect "Pretty good" Thought Process: linear/logical thought process Thought Content: reality based without delusions Suicidal Thoughts: denies suicidal thoughts Homicidal Thoughts: denies homicidal thoughts Hallucinations: no auditory hallucinations and no visual hallucinations Cognition: recent memory grossly intact Estimated Intelligence: average estimated intelligence Insight: good insight Judgement: good judgement (In the last several days on the unit.) Vital Signs (Past 24 Hours) Last Vital Signs Temp 36.4 C L 11/15/19 06:48 Pulse 86 11/15/19 06:48 Resp 18 11/15/19 06:48 BP 135/80 11/15/19 06:48 Pulse Ox 97 11/15/19 03:33 Results & Data ([facility]) Laboratory Results Laboratory Results - last 24 hr 11/15/19 07:52 Stollings 0.9 Current Inpatient Medications Current Inpatient Medications: Current Inpatient Medications Acetaminophen (Tylenol) 650 mg PO Q4H PRN PRN Reason: Headache or Minor Fever Stop: 12/10/19 10:49 Last Admin: 11/11/19 05:54 Dose: 650 mg Documented by: Al Hydrox/Mg Hydrox/Simethicone (Maalox) 30 ml PO Q4H PRN PRN Reason: GI Upset Stop: 12/10/19 10:49 Bismuth Subsalicylate (Kaopectate) 15 ml PO PRN PRN PRN Reason: Loose Stool Stop: 12/10/19 10:49 Bupropion HCl (Wellbutrin-Xl) 150 mg PO DAILY [facility] Stop: 12/11/19 11:29 Last Admin: 11/15/19 08:34 Dose: 150 mg Documented by: Levothyroxine Sodium (Synthroid) 50 mcg PO DAILYPSYCHIATRIC Stop: 12/11/19 07:59 Last Admin: 11/15/19 08:34 Dose: 50 mcg Documented by: Stollings Carbonate (Stollings Carbonate) 1,350 mg PO [facility] Stop: 12/10/19 20:59 Last Admin: 11/14/19 21:08 Dose: 1,350 mg Documented by: Lorazepam (Ativan) 0.5 mg PO [facility] Stop: 12/10/19 21:59 Last Admin: 11/14/19 21:07 Dose: 0.5 mg Documented by: Magnesium Hydroxide (Milk Of Magnesia) 30 ml PO DAILY PRN PRN Reason: Constipation Stop: 12/10/19 10:49 Olanzapine (Zyprexa) 10 mg IM Q6H PRN PRN Reason: psychosis Stop: 12/10/19 10:59 Quetiapine Fumarate (Seroquel) 600 mg PO [facility] Stop: 12/10/19 20:59 Last Admin: 11/14/19 21:08 Dose: 600 mg Documented by: Quetiapine Fumarate (Seroquel) [facility] [place] Stop: 12/11/19 08:59 Last Admin: 11/15/19 08:34 Dose: 300 mg Documented by: Risperidone (Risperdal) 1 mg PO Q6H PRN PRN Reason: psychosis Stop: 12/10/19 10:54 Risperidone (Risperdal) 1 mg PO BID [facility] Stop: 12/12/19 20:59 Last Admin: 11/15/19 08:50 Dose: 1 mg Documented by: Sodium Chloride ([place] Nasal) 1 - 2 sprays NA PRN PRN PRN Reason: Nasal Dryness/Congestion Stop: 12/10/19 10:49 Venlafaxine HCl (Effexor Extended Release) 75 mg PO DAILY [facility] Stop: 12/12/19 10:29 Last Admin: 11/15/19 08:50 Dose: 75 mg Documented by: Mental Health & Subst Abuse Tx Psychiatrist Name of Psychiatrist: Dr. Candelario Psychiatrist's Psychiatric Appointment Comment: [address], [address], [place] Therapist Name of Therapist: [facility] - Gia Nichols LCSW Therapist's Date of Therapist Appointment: 11/17/19 Time of Therapist Appointment: 5:00 p.m. Therapy Appointment Comment: Teletherapy sessions Dry House Tender Name of Dry House Tender: [facility] Phone Number for Dry House Tender: [phone] Case Management Appointment Comment: [facility], [address], [place], [place] Post Discharge Appointments Contact Information Discharge Discharge Address: [address] [place] [id number] (1) Schizoaffective disorder Schizoaffective disorder type: bipolar Qualified Code(s): F25.0 - Schizoaffective disorder, bipolar type (2) Hypothyroidism Hypothyroidism type: unspecified Qualified Code(s): E03.9 - Hypothyroidism, unspecified
[2019-11-15] MEDS: LITHIUM CARBONATE 300 MG TAB PO SCH (22:57)
[2019-11-15] MEDS: LORazepam 0.5 MG TAB PO SCH (22:57)
[2019-11-16] MEDS: LEVOTHYROXINE SODIUM 50 MCG TABLET PO SCH (08:44)
[2019-11-16] MEDS: VENLAFAXINE HCL XR 75 MG CAPXR PO SCH (08:45)
[2019-11-16] MEDS: QUETIAPINE FUMARATE 300 MG TABLET PO SCH ×2 (08:45→21:20)
[2019-11-16] MEDS: BuPROPion XL 150 MG TABCR PO SCH (08:45)
[2019-11-16] MEDS: risperiDONE 1 MG TABLET PO SCH ×2 (08:45→21:17)
[2019-11-16] MEDS: ACETAMINOPHEN 325 MG TAB PO PRN (10:04)
--- NOTE | 2019-11-16 12:35 | Psychiatric Progress Note ---
Date of Service November 16, 2019 Impression / Recommendations Impression 34-year-old male with schizoaffective disorder bipolar type who was admitted involuntarily after being brought to the ED by police on a 302 warrant due to psychosis, erratic and disorganized behavior in the community, and inability to provide for his own basic needs and safety. Police were called by the patient's neighbor following an altercation between the two, and the patient appeared altered, disoriented, and family reported he was not taking his medication. His lithium level was low on presentation, and he admits to poor medication adherence, which appears to be due to psychosis, disorganization, and forgetting to take meds. He was initially continued on his home doses of lithium, quetiapine, lorazepam, and risperidone, with additional risperidone as needed doses. Venlafaxine XR and bupropion were resumed after obtaining his outpatient medication list, to target depressed mood. He initially declined to involve his parents in his treatment, but then agreed to a family meeting which was held 0 11/12/2019. It was a difficult meeting, as his parents want to support him and are concerned about him and the severity of his symptoms, but he feels they are intrusive and does not want them to be involved in his personal affairs. He was willing for referral for mobile med management, and completed intake assessment for case management services, which will be important for him to have additional support as one of his goals is to eventually live independently. He signed in voluntarily on 11/13/2019. Inpatient psychiatric treatment remains medically necessary at this time due to severity of psychotic symptoms, inability to provide for his own basic needs, and risk of harm to both himself or others as a result of his psychosis. While his condition is improving, ongoing psychiatric admission is recommended as his outpatient supports report ongoing concern related to his safety. Anticipate discharge early next week when it is anticipated he will have better access to outpatient psychiatric supports. (1) Schizoaffective disorder: 11/09 - Admitted to a locked inpatient behavioral health unit, on q15 minute safety checks - Outpatient psychiatrist has confirmed diagnosis of schizoaffective disorder, bipolar type. Will require records and continued coordination regarding patient's current medication list and other information surrounding his history. - At this time, will continue lithium 1350mg qHS, lorazepam 0.5mg qHS, quetiapine 300mg qAM and 600mg qHS, and risperidone 0.5mg qAM and 1mg qHS (with 1mg prn dose available). Holding venlafaxine until medication list can be confirmed - can re-initiate if patient reports symptoms of discontinuation syndrome. UDS positive for MDMA, with recent prescription for bupropion (though not clear if this is a current or past medication). - Fasting labs obtained by outpatient psychiatrist in 02/2019. HgbA1c was 5.1%. Triglycerides elevated at 217. Total cholesterol within normal limits at 139. LDL - 58; HDL - 38. - Pt's creatinine was mildly elevated in the ED - given continued use of lithium, will repeat BMP for tomorrow morning - Encourage participation in group and recreational therapies. Will assist with development of healthy and effective coping strategies - Encourage family meeting to involve parents in safety/discharge planning - unwilling to sign an JERAMIE at this time - Arrange appropriate aftercare appointments 11/10 - Creatinine elevated on admission (1.5), recheck today is 1.07. Resumed lithium yesterday, will recheck trough after 5 days (11/14). - Resume home dose of bupropion XL 250 mg every morning. - Collateral information from parents would be very helpful, and today patient indicates willingness to sign an JERAMIE and schedule a family meeting. - Coordinate care with Dr. Candelario, outpatient psychiatrist. He will need to be rescheduled with his therapist, Gia Ca - Refer for BCM for additional support. 11/11 - Resume home dose of venlafaxine XR as mood has been lower here and was previously on 75mg daily. - Increase risperidone to 1mg bid and continue quetiapine which was increased to to 300mg qam and 600mg HS. - Family meeting with parents, and coordinate care with Dr. Candelario. Parents confirmed there are no guns in the home. - Recommend increase in OP supports including BCM and mobile med management. - Continue 302 involuntary commitment and consider filing for 303 involuntary commitment, as he remains paranoid, depressed, and thought blocked, and parents have concerns about him coming home before he is more stable (2 episodes leading to potential arrest in the past 2 weeks, ability to communicate with parents, willingness to accept increased supports), versus allowing him to sign in voluntarily, which he indicates a willingness to do today. - Mandated [employer] report regarding impaired driving resulting in ?DUI earlier this month, and that due to impairing condition and multiple medications that can impair focus, he should not drive until he is stable and his physician evaluates him and determines he can resume driving. Will discuss further with patient once he is less psychotic/not blocked. 11/12 -Patient signed in voluntarily and is now on a 201 voluntary commitment. -Continue current medication regimen, observe for oversedation (somnolence improving, suspect was at least partially related to decreased sleep prior to admission). -Reviewed recommendations not to drive until he is fully stable with the patient, and that mandated [employer] form was submitted. He expressed understanding and agreement. 11/13 and 11/14 - Continue current medication regimen - Pt reports willingness for additional outpatient supports - has completed intake with case management and referral was sent for [facility] medication management - Family meeting yesterday to discuss discharge/safety planning - patient is planning to return to his previous living situation, in an apartment [address] 11/15 as above, did provide some brief CBT discussing anxiety and ways to manage anticipation and consider his progress and ability to ask others for guidance and help iff needed, and that when taking medications he is a good problem solver and often does very well. He expresses that he feels reassured when considering this discussion (2) Hypothyroidism: 11/09 - Continue home dose of levothyroxine 50mcg qAM. TSH 3.760. Risk Factors Assessment Male: Yes : Yes Do You Have Access To A Gun?: No Health Problems: No Mental Health Diagnoses: Yes Substance Use Disorders: No Previous Psychiatric Hospitalization: Yes Hopelessness: No Smoker: No Protective Factors Assessment : No Responsible for Young Children: No Employed: No Stable Relationships: No Supportive Family: Yes (But patient views parents as intrusive and unhelpful.) Good Rapport with Provider: Yes Interval History Identifying Information CINTIA ACOSTA is a 34-year-old M who currently lives in [place] with his mother and father, has a history of schizoaffective disorder, bipolar type, and was admitted on 11/10/19 10:51 on a 302 involuntary commitment for delusions/paranoia leading to a verbal altercation with a neighbor. Police were called to patient's home and he was brought to the ED for further evaluation. Pt signed in voluntarily on 11/13/2019 for continued inpatient psychiatric treatment. Chief Complaint " I think I am feeling better". Review of Systems Sleep Information Total Hours of Sleep: 6.25 Sleep Comments: 1:1 staff observation for C-Pap use Meal Information Percent Meal Consumed - Breakfast: 100 Percent Meal Consumed - Lunch: 100 Percent Meal Consumed - Dinner: 75 Subjective Subjective Patient was seen & assessed and interval progress reviewed with treatment team Per nursing staff the patient is attending groups, remains appropriate on the unit, yesterday participated in doing his laundry and showered. He appears bright on the unit he engaged in watching TV and walking laps. He described his mood as a 6 out of 10 and optimistic. I met with the patient in his room today he was cooperative and stated his mood was "good" rated it as a 5 out of 10 (0 most depressed, 5 euthymic, 10 manic) he stated I think it is "very good for me to be here and usually I want to leave here quickly but now I am aware that I feel safe and comfortable here and want to go when everybody agrees it is good for me to discharge" he is mildly anxious rating his anxiety as a 4 out of 10 (10 worst, 0 none) having some mild anticipation of leaving the hospital and recognizing it will be an adjustment for him to return to routines at home and "clean up" he states he feels less depressed his thoughts are clearer. He denies safety concerns. Review of systems he denies having stiffness denies akathisia does have dry mouth from his medications but intact appetite no GI distress. Physical Exam Psychiatric A+Ox3, euthymic affect Apperance: appropriately dressed Eye Contact: good eye contact Motor Behavior: steady gait and station and no abnormal motor movements Speech: normal rate/rhythm/volume of speech Subdued affect with an occasional social smile "Pretty good" Thought Process: goal directed thought process and linear/logical thought process Thought Content: reality based without delusions Suicidal Thoughts: denies suicidal thoughts Homicidal Thoughts: denies homicidal thoughts Hallucinations: no auditory hallucinations and no visual hallucinations Cognition: recent memory grossly intact Estimated Intelligence: average estimated intelligence Insight: good insight Judgement: good judgement Vital Signs (Past 24 Hours) Last Vital Signs Temp 36.5 C 11/16/19 06:00 Pulse 98 H 11/16/19 06:31 Resp 16 11/16/19 06:00 BP 143/92 H 11/16/19 06:31 Pulse Ox 98 11/16/19 03:08 Results & Data ([facility]) Current Inpatient Medications Current Inpatient Medications: Current Inpatient Medications Acetaminophen (Tylenol) 650 mg PO Q4H PRN PRN Reason: Headache or Minor Fever Stop: 12/10/19 10:49 Last Admin: 11/16/19 10:04 Dose: 650 mg Documented by: Al Hydrox/Mg Hydrox/Simethicone (Maalox) 30 ml PO Q4H PRN PRN Reason: GI Upset Stop: 12/10/19 10:49 Bismuth Subsalicylate (Kaopectate) 15 ml PO PRN PRN PRN Reason: Loose Stool Stop: 12/10/19 10:49 Bupropion HCl (Wellbutrin-Xl) 150 mg PO DAILY [facility] Stop: 12/11/19 11:29 Last Admin: 11/16/19 08:45 Dose: 150 mg Documented by: Levothyroxine [facility]) [facility] Stop: 12/11/19 07:59 Last Admin: 11/16/19 08:44 Dose: 50 mcg Documented by: Toaville Carbonate (Toaville Carbonate) 1,350 mg PO [facility] Stop: 12/10/19 20:59 Last Admin: 11/15/19 22:57 Dose: 1,350 mg Documented by: Lorazepam (Ativan) 0.5 mg PO HS [facility] Stop: 12/10/19 21:59 Last Admin: 11/15/19 22:57 Dose: 0.5 mg Documented by: Magnesium Hydroxide (Milk Of Magnesia) 30 ml PO DAILY PRN PRN Reason: Constipation Stop: 12/10/19 10:49 Olanzapine (Zyprexa) 10 mg IM Q6H PRN PRN Reason: psychosis Stop: 12/10/19 10:59 Quetiapine Fumarate (Seroquel) 600 mg PO HS [facility] Stop: 12/10/19 20:59 Last Admin: 11/15/19 22:58 Dose: 600 mg Documented by: Quetiapine [facility]umarate (Seroquel) [facility]: 12/11/19 08:59 Last Admin: 11/16/19 08:45 Dose: 300 mg Documented by: Risperidone (Risperdal) 1 mg PO Q6H PRN PRN Reason: psychosis Stop: 12/10/19 10:54 Risperidone (Risperdal) 1 mg PO BID [facility] Stop: 12/12/19 20:59 Last Admin: 11/16/19 08:45 Dose: 1 mg Documented by: Sodium Chloride (Buna Nasal) 1 - 2 sprays NA PRN PRN PRN Reason: Nasal Dryness/Congestion Stop: 12/10/19 10:49 Venlafaxine HCl (Effexor Extended Release) 75 mg PO DAILY [facility] Stop: 12/12/19 10:29 Last Admin: 11/16/19 08:45 Dose: 75 mg Documented by: Mental Health & Subst Abuse Tx Psychiatrist Name of Psychiatrist: Dr. Candelario Psychiatrist's Psychiatric Appointment Comment: [address], [address] [place] [place] Therapist Name of Therapist: [facility] - Gia Nichols LCSW Therapist's Date of Therapist Appointment: 11/17/19 Time of Therapist Appointment: 5:00 p.m. Therapy Appointment Comment: Teletherapy sessions [employer] Name of [employer]: [employer] Phone Number for [employer]: [phone] Case Management Appointment Comment: [address], [address], [place], [place] Post Discharge Appointments Contact Information Discharge Discharge Address: [address] [place] [id number] (1) Schizoaffective disorder Schizoaffective disorder type: bipolar Qualified Code(s): F25.0 - Schizoaffective disorder, bipolar type (2) Hypothyroidism Hypothyroidism type: unspecified Qualified Code(s): E03.9 - Hypothyroidism, unspecified
[2019-11-16] MEDS: LORazepam 0.5 MG TAB PO SCH (21:18)
[2019-11-16] MEDS: LITHIUM CARBONATE 300 MG TAB PO SCH (21:20)
[2019-11-17 03:26] VITALS: O2SAT 97
[2019-11-17] MEDS: ACETAMINOPHEN 325 MG TAB PO PRN (03:36)
[2019-11-17 06:35] VITALS: TEMP 97.3
[2019-11-17] MEDS: LEVOTHYROXINE SODIUM 50 MCG TABLET PO SCH (07:39)
[2019-11-17] MEDS: risperiDONE 1 MG TABLET PO SCH (07:40)
[2019-11-17] MEDS: BuPROPion XL 150 MG TABCR PO SCH (07:40)
[2019-11-17] MEDS: VENLAFAXINE HCL XR 75 MG CAPXR PO SCH (07:40)
[2019-11-17] MEDS: QUETIAPINE FUMARATE 300 MG TABLET PO SCH (07:40)
--- NOTE | 2019-11-17 11:47 | Discharge Summary ---
Date of Service November 17, 2019 History of Present Illness Emanuel Jurado is a 34-year-old male admitted involuntarily on 11/10/2019 after being brought to the ED by [employer] for a mental health evaluation. Pt has a reported history of schizoaffective disorder, bipolar type with last psychiatric hospitalization reportedly in 06/2017. 302 petitioning statement was prepared by ED psychiatric shoe caser, upheld in ED by physician. Statement reads: "Emanuel Jurado was brought to ED via [employer] after neighbors called police d/t patient engaging in a verbal altercation with them and charging at their door. Emanuel appears confused and disoriented. Emanuel will not answer most questions. He was observed talking to a person who wasn't there. Emanuel is pacing and restless but does not appear oriented to where he is going or what he is doing. Emanuel is not able to provide for his self care and personal safety at this time d/t not being reality-based. Mother reports patient may not be taking his medication. Patient's lithium level was low in the ED." Pt was rather agitated in the ED, requiring IM injections of haloperidol, lorazepam, and olanzapine - he appears to be calm upon arrival to the unit. Pt was cooperative with psychiatric evaluation. He reports feeling as though he has been in "survival mode" for the past several weeks. Although he has difficulty describing what this means, he is able to verbalize awareness that he has not been as stable psychiatrically for the past month. Pt is unable to provide any "warning signs" of this instability, but states his mother was also noticing some concerns. Pt reports his mother had encouraged him to reach out to his outpatient psychiatrist, or stated that she would do it for him. Pt speaks on several separate occasions about his frustration with feeling he was being pressured by his parents to make certain decisions. Pt states that he has been wanting to move out of his parents house, but admits that there is no specific plan in place to make this happen as "I've just been trying to clean and pack things up, but I don't know where I would go." Pt states that he feels his relationship with his parents has been strained for the past month. When attempting to gather more details about this, patient is unable to offer specifics. Pt was asked about the event which directly lead to his admission. He did require a significant amount of prompting before even mentioning the altercation with his neighbor, and even then was unsure of many of the details. Patient's understanding is that he had been out walking his dog and "wandered onto the neighbor's property." He states the neighbor started yelling at him, and next thing he knew the police were at his house. When asked about details, only then does patient admit he walked up to the neighbor's door and knocked. Pt is unsure about the nature of the argument and states the man was not someone he normally interacted with. Pt did deny feeling compelled to speak with the man, or being instructed to talk with him by any voices. Pt's frequent response to questions on this topic was "it was a blur." Pt does admit to feeling "sad" more frequently, stating "I'm not smiling as much as I used to." He also admits to increased anxiety in the setting of his strained relationship with his parents. Pt states that his appetite has been decreased for the past month, and that while he is not feeling fatigued or having difficulty sleeping "I just don't get enough sleep." Pt denies SI presently, but states that he had thought about "you know people that cut themselves? I've never done it, but I did think about it a couple days ago." Pt states that he has not been admitted for psychiatric treatment in over 2 years. He has had consistent therapy and psychiatric medication management for 15+ years. Pt does admit to some recent medication adjustments (titration of quetiapine and initiation of risperidone) in order to improve mood stability. Pt denies SI, HI, SIB, A/V hallucinations, paranoia, valeri/hypomania, OCD, PTSD, eating disorder, and other specific psychiatric symptoms. Physical Exam Psychiatric Orientation: alert, oriented x 3 and cooperative Apperance: appropriately dressed, appropriately groomed and appeared stated age Brief, intermittent eye contact. Motor Behavior: steady gait and station and no abnormal motor movements Slightly slow at times, normal volume and tone. Affect: + blunted affect (smiled appropriately at times) "Average," rated 6/10. Thought Process: goal directed thought process and clear/coherent thought process Thought Content: reality based without delusions Suicidal Thoughts: denies suicidal thoughts Homicidal Thoughts: denies homicidal thoughts Hallucinations: no auditory hallucinations and no visual hallucinations Cognition: recent memory grossly intact, remote memory grossly intact, attention grossly intact and language grossly intact Estimated Intelligence: consistent with education level Insight: + fair insight Judgement: + fair judgement Vital Signs (Past 24 Hours) Last Vital Signs Temp 36.3 C L 11/17/19 06:33 Pulse 80 11/17/19 06:34 Resp 20 11/17/19 06:33 BP 133/84 11/17/19 06:34 Pulse Ox 97 11/17/19 03:25 Principal Diagnosis Schizoaffective disorder, bipolar type Psychiatric Data Patient was hospitalized for 7 days. His quetiapine and risperidone doses were increased for mood stabilization and psychosis. He tolerated them well, other than some mild sedation and dry mouth. He was continued on his other home medications, and ways to improve medication adherence at home were explored. He reported a pattern of medication nonadherence when psychotic/unstable, forgetting to take medications and not wanting parents to be involved in his treatment. He accepted recommendations for a referral for mobile med management and blended case management. Care was coordinated with his outpatient psychiatrist and therapist, and although he initially did not want to involve his parents in treatment, he later agreed to sign a release for them and to have a family meeting. It was held on 11/12/2019, and he was able to express his desire to have more independence from his parents, as well as privacy. He stated that he had been pulled over by the police earlier in the month due to swerving and driving too fast, and that they thought he was under the influence, which he denied. He was brought to the ER where he had a blood test, and was unsure if he had charges, possibly dependent on the results of the test. Concerns about his recent erratic driving were discussed, and the mandated [place] [employer] form was submitted and discussed with the patient, his parents, and his outpatient psychiatrist. As his psychosis improved, he was able to review the events that led to hospitalization, specifically the altercation with his neighbor. He said that he had been walking his dog, became confused and disoriented, and ended up on to his neighbor's property. He heard someone yelling at him, and went to the door where a man startled him. He picked up a package on the porch with thoughts to throw it at the man because he was scared of him, but then heard yelling down the street, so dropped it. While in the hospital, he consistently denied any thoughts to harm others, and was not aggressive or threatening. He consistently denied thoughts of harming himself and did not engage in self-injurious behavior. He was eating and sleeping well, and after his first couple of days on the unit, was able to attend and participate appropriately in groups and therapy. He discussed triggers for his recent episode, including his relationship with his parents and desire to move out and live independently. He was able to develop short and long-term goals, and at the conclusion of his 302 involuntary commitment, agreed to sign in voluntarily for treatment. Psychosis (thought blocking, delayed speech, disorganization and paranoia) improved, as did mood and anxiety levels. He was more spontaneous and appropriate in his interactions with others. He demonstrated good sleep and appetite, and was performing ADLs independently. Day of Discharge Assessment Staff report the patient is attending and participating in groups and therapy appropriately. He is taking medications as prescribed. On my assessment, he reports mood is improved from admission, rates it 6/10 and describes it as "a bit above average." He reports sleeping about an hour extra a day, but denies daytime napping. He denies SI, HI, hallucinations, and paranoia. Describes his thoughts as "much clearer," and says that in retrospect, he has been struggling with difficulty thinking clearly for the past 3 months. Reports ongoing dry mouth; denies other side effects. He is requesting discharge, stating he is "optimistic, a little apprehensive about transitioning back to my parents' basement, but I think I'm ready." He feels treatment has been helpful, and denies any safety concerns with discharge. His primary concern is about how he will deal with his parents "interfering in my privacy and business," and that his mother doesn't always respond when he asks her to stop. He feels he was able to discuss his concerns with them during hospitalization, and does think they've tried to interfere less. He thinks his recent episode was triggered by "taking on too much," and notes he does not always see the "early warning signs," but has been working on identifying those. He states willingness to follow up with outpatient treatment as scheduled, and wants to consider finding a new therapist. Transition of Care Transition Of Care Record: was reviewed with the patient Advance Directives Advance Directives Information Provided: Yes Advance Directives: No Mental Health Advance Directive: No Advance Directives on File: No Living Will: No Power of Certified Energy Manager: No Advance Directives Reason:: Declines as Mental Health Visit. Risk Factors Assessment Risk factors mitigated by admission to the inpatient unit, adjustment of medications to target mood and psychotic symptoms, coordination of care w/ outpatient providers, referring him for additional outpatient supports, exploring ways to improve medication adherence, involving him in groups and therapy, family meeting with his parents, recommendations not to drive until stable, and working on healthy coping skills and discharge safety plan. He has demonstrated improvement in mood and psychotic symptoms, was taking and tolerating medications well, participating in groups and therapy, performing ADLs independently, eating and sleeping well, and consistently denying SI and HI. He was calm and cooperative, without aggression or agitation. He is req uesting discharge, and as he is no longer at acute risk of harm to himself, can be managed as an outpatient at this time. 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 Plan is to taper off risperidone over the next 1-2 months as he stabilizes. Total Time Total Time Spent: Greater Than 30 Minutes Discharge Data Consultations 11/10/19 11:20 ED Decision to Admit Stat Lab Results 11/09/19 11/09/19 11/09/19 21:35 21:35 21:35 WBC 13.87 H RBC 4.98 Hgb 14.9 Hct 44.2 MCV 88.8 MCH 29.9 MCHC 33.7 RDW Std Deviation 42.9 RDW Coeff of Donna 13.2 Plt Count 283 MPV 9.8 Immature Gran % (Auto) 0.5 Neut % (Auto) 67.4 Lymph % (Auto) 23.3 [place] % (Auto) 8.3 Eos % (Auto) 0.3 Baso % (Auto) 0.2 Immature Gran # (Auto) 0.07 H Neut # (Auto) 9.35 H Lymph # (Auto) 3.23 [place] # (Auto) 1.15 H Eos # (Auto) 0.04 Baso # (Auto) 0.03 Sodium 134 L Potassium 3.9 Chloride 101 Carbon Dioxide 28 Anion Gap 6.0 BUN 15 Creatinine 1.50 H Est Cr Clr Drug Dosing 87.3 Est GFR ( Amer) 68.4 Est GFR (Non-Af Amer) 59.0 BUN/Creatinine Ratio 9.7 L Glucose 106 H Calcium 10.1 Total Bilirubin 1.1 H AST 50 H ALT 47 Alkaline Phosphatase 77 Total Protein 8.5 H Albumin 4.9 Globulin 3.6 Albumin/Globulin Ratio 1.4 TSH 3.760 Urine Color Urine Appearance Urine pH Ur Specific [place] Urine Protein Urine Glucose (UA) Urine Ketones Urine Blood Urine Nitrite Urine Bilirubin Urine Urobilinogen Ur Leukocyte Esterase Urine RBC Urine WBC Ur Epithelial Cells Urine Bacteria Hyaline Casts Urine Mucus Salicylates < 1.7 L Urine Opiates Screen Ur Methadone, Qual Acetaminophen 3 L Urine Barbiturates Ur Phencyclidine (PCP) U Amphetamin/Meth Scrn Urine MDEA MDMA (Ecstasy) Screen MDMA Urine MDMA U Benzodiazepines Scrn [place] 0.3 L Ur Cocaine Metabolite U Marijuana (THC) Screen Ethyl Alcohol mg/dL 11/09/19 11/09/19 11/09/19 21:35 Unknown Unknown WBC RBC Hgb Hct MCV MCH MCHC RDW Std Deviation RDW Coeff of Donna Plt Count MPV Immature Gran % (Auto) Neut % (Auto) Lymph % (Auto) [place] % (Auto) Eos % (Auto) Baso % (Auto) Immature Gran # (Auto) Neut # (Auto) Lymph # (Auto) [place] # (Auto) Eos # (Auto) Baso # (Auto) Sodium Potassium Chloride Carbon Dioxide Anion Gap BUN Creatinine Est Cr Clr Drug Dosing Est GFR ( Amer) Est GFR (Non-Af Amer) BUN/Creatinine Ratio Glucose Calcium Total Bilirubin AST ALT Alkaline Phosphatase Total Protein Albumin Globulin Albumin/Globulin Ratio TSH Urine Color Yellow Urine Appearance Clear Urine pH 5.5 Ur Specific [place] 1.014 Urine Protein Trace H Urine Glucose (UA) Negative Urine Ketones Negative Urine Blood Negative Urine Nitrite Negative Urine Bilirubin Negative Urine Urobilinogen Negative Ur Leukocyte Esterase Negative Urine RBC 0-4 Urine WBC 0-5 Ur Epithelial Cells 5-10 H Urine Bacteria Negative Hyaline Casts 10-30 H Urine Mucus Present A Salicylates Urine Opiates Screen Neg Ur Methadone, Qual Neg Acetaminophen Urine Barbiturates Neg Ur Phencyclidine (PCP) Neg U Amphetamin/Meth Scrn Neg Urine MDEA MDMA (Ecstasy) Screen Pos H MDMA Urine MDMA U Benzodiazepines Scrn Neg [place] Ur Cocaine Metabolite Neg U Marijuana (THC) Screen Neg Ethyl Alcohol mg/dL < 3.0 11/09/19 11/11/19 11/15/19 Unknown 07:27 07:52 WBC RBC Hgb Hct MCV MCH MCHC RDW Std Deviation RDW Coeff of Donna Plt Count MPV Immature Gran % (Auto) Neut % (Auto) Lymph % (Auto) [place] % (Auto) Eos % (Auto) Baso % (Auto) Immature Gran # (Auto) Neut # (Auto) Lymph # (Auto) [place] # (Auto) Eos # (Auto) Baso # (Auto) Sodium 135 L Potassium 3.9 Chloride 105 Carbon Dioxide 26 Anion Gap 4.0 BUN 15 Creatinine 1.07 Est Cr Clr Drug Dosing 122.4 Est GFR ( Amer) 103.0 Est GFR (Non-Af Amer) 88.8 BUN/Creatinine Ratio 13.6 Glucose 122 H Calcium 9.9 Total Bilirubin AST ALT Alkaline Phosphatase Total Protein Albumin Globulin Albumin/Globulin Ratio TSH Urine Color Urine Appearance Urine pH Ur Specific [place] Urine Protein Urine Glucose (UA) Urine Ketones Urine Blood Urine Nitrite Urine Bilirubin Urine Urobilinogen Ur Leukocyte Esterase Urine RBC Urine WBC Ur Epithelial Cells Urine Bacteria Hyaline Casts Urine Mucus Salicylates Urine Opiates Screen Ur Methadone, Qual Acetaminophen Urine Barbiturates Ur Phencyclidine (PCP) U Amphetamin/Meth Scrn Urine MDEA negative MDMA (Ecstasy) Screen MDMA negative Urine MDMA negative U Benzodiazepines Scrn [place] 0.9 Ur Cocaine Metabolite U Marijuana (THC) Screen Ethyl Alcohol mg/dL Hospital Course (1) Schizoaffective disorder: 11/09 - Admitted to a locked inpatient behavioral health unit, on q15 minute safety checks - Outpatient psychiatrist has confirmed diagnosis of schizoaffective disorder, bipolar type. Will require records and continued coordination regarding patient's current medication list and other information surrounding his history. - At this time, will continue lithium 1350mg qHS, lorazepam 0.5mg qHS, quetiapine 300mg qAM and 600mg qHS, and risperidone 0.5mg qAM and 1mg qHS (with 1mg prn dose available). Holding venlafaxine until medication list can be confirmed - can re-initiate if patient reports symptoms of discontinuation syndrome. UDS positive for MDMA, with recent prescription for bupropion (though not clear if this is a current or past medication). - Fasting labs obtained by outpatient psychiatrist in 02/2019. HgbA1c was 5.1%. Triglycerides elevated at 217. Total cholesterol within normal limits at 139. LDL - 58; HDL - 38. - Pt's creatinine was mildly elevated in the ED - given continued use of lithium, will repeat BMP for tomorrow morning - Encourage participation in group and recreational therapies. Will assist with development of healthy and effective coping strategies - Encourage family meeting to involve parents in safety/discharge planning - unwilling to sign an JERAMIE at this time - Arrange appropriate aftercare appointments 11/10 - Creatinine elevated on admission (1.5), recheck today is 1.07. Resumed lithium yesterday, will recheck trough after 5 days (11/14). - Resume home dose of bupropion XL 250 mg every morning. - Collateral information from parents would be very helpful, and today patient indicates willingness to sign an JERAMIE and schedule a family meeting. - Coordinate care with Dr. Candelario, outpatient psychiatrist. He will need to be rescheduled with his therapist, Gia Ca - Refer for BCM for additional support. 11/11 - Resume home dose of venlafaxine XR as mood has been lower here and was previously on 75mg daily. - Increase risperidone to 1mg bid and continue quetiapine which was increased to to 300mg qam and 600mg HS. - Family meeting with parents, and coordinate care with Dr. Candelario. Parents confirmed there are no guns in the home. - Recommend increase in OP supports including BCM and mobile med management. - Continue 302 involuntary commitment and consider filing for 303 involuntary commitment, as he remains paranoid, depressed, and thought blocked, and parents have concerns about him coming home before he is more stable (2 episodes leading to potential arrest in the past 2 weeks, ability to communicate with parents, willingness to accept increased supports), versus allowing him to sign in voluntarily, which he indicates a willingness to do today. - Mandated [employer] report regarding impaired driving resulting in ?DUI earlier this month, and that due to impairing condition and multiple medications that can impair focus, he should not drive until he is stable and his physician evaluates him and determines he can resume driving. Will discuss further with patient once he is less psychotic/not blocked. 11/12 -Patient signed in voluntarily and is now on a 201 voluntary commitment. -Continue current medication regimen, observe for oversedation (somnolence improving, suspect was at least partially related to decreased sleep prior to admission). -Reviewed recommendations not to drive until he is fully stable with the patient, and that mandated [employer] form was submitted. He expressed understanding and agreement. 11/13 and 11/14 - Continue current medication regimen - Pt reports willingness for additional outpatient supports - has completed intake with case management and referral was sent for [facility] medication management - Family meeting yesterday to discuss discharge/safety planning - patient is planning to return to his previous living situation, in an apartment off [address] 11/15 as above, did provide some brief CBT discussing anxiety and ways to manage anticipation and consider his progress and ability to ask others for guidance and help iff needed, and that when taking medications he is a good problem solver and often does very well. He expresses that he feels reassured when considering this discussion 11/16 - Discharge to home. Prescription issued for quetiapine 300mg qam. - F/u with Dr. Candelario 11/18, therapist, BCM, and mobile med management. - [place] [employer] form submitted re: patient not medically stable to drive at this time. Patient informed of process and that once stable and cleared to drive, form can be resubmitted to the state. (2) Hypothyroidism: 11/09 - Continue home dose of levothyroxine 50mcg qAM. TSH 3.760. Mental Health & Subst Abuse Tx Psychiatrist Name of Psychiatrist: Dr. Candelario Psychiatrist's Date of Appointment with Psychiatrist: 11/19/19 Psychiatric Appointment Comment: [address], [address], [place], [place] Therapist Name of Therapist: [facility] - Gia Nichols LCSW Therapist's Date of Therapist Appointment: 11/17/19 Time of Therapist Appointment: 5:00 p.m. Therapy Appointment Comment: Teletherapy sessions Paleobotanist Name of Paleobotanist: [employer] [facility] Phone Number for Paleobotanist: [phone] Case Management Appointment Comment: [address], [address], [place], [place] Post Discharge Appointments Primary Care Physician Name Of Family Doctor: [facility] - Dr. Figueroa Primary Care Provider Appointment Comment: [address], [address], [place] Smoking Cessation Counseling Tobacco Cessation Medication Prescribed at Discharge: Not Applicable/Non-Smoker Contact Information Discharge Discharge Address: [address] [place] [id number] Discharge Plan Discharge Items Patient Disposition: Home - Self-Care Reason For Visit: PSYCHOSIS Discharge Diagnosis: Schizoaffective disorder, bipolar type Activity: Per Instructions section Non-emergency contact: Psychiatrist, Therapist and Baffle Installer Call non-emergency contact if: you have any medication questions and your symptoms worsen Follow-up/Referrals: Melo Figueroa MD [Primary Care Provider] - Diet: Regular Addtl Attending Provider Instructions: SPECIAL CARE INSTRUCTIONS: 1. Follow through with your scheduled aftercare appointments. If unable to keep an appointment, please call to reschedule. 2. Take your medication only as prescribed. Medication should not be changed or stopped without the approval of your doctor. In the event of worsening symptoms or concerns about side effects, contact your doctor immediately. 3. Utilize new healthy coping skills, anger management skills, and stress management skills learned during your hospitalization. Journal feelings and process them with a support person. Identify stressors or situations that may result in relapse, deterioration or inappropriate behaviors and develop a plan to deal with those issues. 4. If your coping skills are ineffective and you are in crisis, contact your outpatient providers for direction. If unable to reach your providers, please call the CAN HELP LINE AT or go to the closest Emergency Room. 5. Avoid alcohol and un-prescribed drugs. 6. You have been provided with the Mental Health Advance Directives Pamphlet for your review. 7. You are not medically cleared to drive. Follow up with your outpatient psychiatrist for ongoing treatment and so that you can be cleared to drive once fully stabilized. AFTERCARE APPOINTMENTS: * Please call your insurance company prior to your scheduled appointment to confirm your aftercare providers are covered. Take your insurance information to your appointments. WHO TO CALL AND WHEN: Medical Emergencies: For questions or emergencies related to your hospital stay, please contact the Inpatient Behavioral Health Unit at [phone]. A pre coder is on-call 12/02 for the Behavioral Health Unit for emergencies At any time you feel your situation is an emergency, you may also call 911 immediately. Your Doctors Instructions noted above were prepared by provider Mare Lopez MD. Pending Studies at Discharge: No Stand-Alone Forms: [facility] [employer], Smoking Cessation, Suicide Prevention Resources Medications and DC Order Prescriptions: New quetiapine 300 mg Tablet 300 mg PO QAM Qty: 30 RF: 0 Continued quetiapine [Seroquel] 200 mg Tablet 600 mg PO HS RF: 0 lithium carbonate 300 mg capsule 1,350 mg PO HS RF: 0 levothyroxine 50 mcg tablet 50 mcg PO QAM RF: 0 lorazepam 0.5 mg tablet See Rx Instructions .ROUTE .COMPLEX PRN (Reason: anxiety/sleep) RF: 0 bupropion HCl [Wellbutrin XL] 150 mg tablet extended release 24 hr 150 mg PO DAILY RF: 0 venlafaxine 75 mg Tablet Extended Release 24hr 75 mg PO DAILY RF: 0 Changed risperidone 0.5 mg Tablet 1 mg PO BID Qty: 0 RF: 0 Discontinued risperidone 0.5 mg Tablet 0.5 mg PO QAM RF: 0 Discharge Orders: Discharge Order (Routine); Ordered 11/17/19 Ordered By: Mare Lopez Admission Data Admit Date/Time: 11/10/19 10:51 Attending Provider: Mare Lopez Admit Provider: Mare Lopez Primary Care Provider: Melo Figueroa Other Providers: Mare Lopez Other Interventions: PSY Interdisciplinary Discharge Planning Last Done: 11/17/19 11:36 Coding Level of Care Code 93136 D/C day mgmt > 30 min Diagnoses Schizoaffective disorder F25.0 Schizoaffective disorder type: bipolar Hypothyroidism E03.9 Hypothyroidism type: unspecified
[2019-11-17 11:49] VITALS: BP 134/76; PULSE 102
== END 2019-11-17 15:30 | disposition home or self-care (01) | DRG 885 ==
LOC: ED 21:19 → 3S 11-10 10:51

== ENCOUNTER 2021-03-03 09:47 | Inpatient (IN) ==
[2021-03-03] MEDS ORDERED: SODIUM CHLORIDE 0.9% 1000ML 1,000 ML IV SCH (10:00)
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
[2021-03-03 10:18] LABS: Basophils # (auto) 0.02 K/uL (0-0.2); Basophils % (auto) 0.2 %; Eosinophils # (auto) 0.01 K/uL (0-0.5); Eosinophils % (auto) 0.1 %; Hematocrit (blood only) 39.8 % (42-52); Hemoglobin 13.6 g/dL (14.0-18.0); Immature Granulocytes # (auto) 0.03 K/uL (0.00-0.02); Immature Granulocytes % (auto) 0.3 %; Lymphocytes # (auto) 1.41 K/uL (1.2-3.4); Lymphocytes % (auto) 14.9 %; Mean Corpuscular Hemoglobin 29.4 pg (25-34); Mean Corpuscular Hgb Conc 34.2 g/dL (32-36); Monocytes # (auto) 0.47 K/uL (0.11-0.59); Neutrophils # (auto) 7.53 K/uL (1.4-6.5); Neutrophils % (auto) 79.5 %; Platelet Count 246 K/uL (130-400); RDW Standard Deviation 41.1 fL (36.4-46.3); Red Blood Count 4.63 M/uL (4.7-6.1); White Blood Count 9.47 K/uL (4.8-10.8)
--- NOTE | 2021-03-03 10:34 | CT Scan Report ---
CT SCAN OF THE CERVICAL SPINE CLINICAL HISTORY: Trauma. Fall. COMPARISON STUDY: No priors. TECHNIQUE: CT scan of the cervical spine is performed from the skull base to the upper thoracic spine . Images are reviewed in the axial, sagittal, and coronal planes. IV contrast was not administered fo r this examination. A dose lowering technique was utilized adhering to the principles of ALARA. CT DOSE: 1747.53 mGy.cm FINDINGS: Skeletal structures: The skeletal structures are well mineralized. There is no evidence of fracture o r subluxation involving the cervical spine. Vertebral body height and alignment are maintained. There is straightening of the cervical lordosis with reversal centered at C4-C5. The odontoid process and lateral masses are intact. The atlantoaxial articulation is preserved. The spinous processes appear i ntact. Intervertebral discs: The disc spaces are well maintained. Central canal: Widely patent. Soft tissues: The prevertebral and paraspinous soft tissues are within normal limits. Calvarium: The visualized calvarium at the skull base appears intact. Brain parenchyma: Partially visualized brain parenchyma at the skull base is within normal limits. Sinuses and mastoids: The visualized paranasal sinuses are clear. The mastoid air cells are well pneu matized. Lung apices: Clear as visualized. IMPRESSION: There is no evidence of fracture or subluxation involving the cervical spine. ACT 112: Negative or not required by law. Electronically signed by: Patrick Alberto M.D. 03/03/2021 10:33 AM
[2021-03-03 10:36] LABS: Albumin Level 4.3 gm/dl (3.4-5.0); BUN Creatinine Ratio 17.9 (10-20); Calcium 9.4 mg/dl (8.5-10.1); Creatinine Clr Calc Pharmacy 134.6 ml/min; Est GFR (African American) 103.4 ml/min; Est GFR (Non-African American) 89.2 ml/min; Potassium 3.8 mmol/L (3.5-5.1)
--- NOTE | 2021-03-03 10:37 | CT Scan Report ---
HEAD CT NONCONTRAST CT DOSE: HISTORY: possible seizure TECHNIQUE: Multiaxial CT images of the head were performed without the use of intravenous contrast. A utomated exposure control was utilized for this study. A dose lowering technique was utilized adheri ng to the principles of ALARA. Comparison: None. Findings: The paranasal sinuses and mastoid air cells are clear. The calvarium and skull base are int act. The ventricles and sulci are within normal limits. There is no mass, hematoma, midline shift, or acute infarct. Impression: No acute intracranial abnormality. ACT 112: Negative or not required by law. Electronically signed by: Herman Gunderson M.D. 03/03/2021 10:36 AM
[2021-03-03 10:43] LABS: Acetaminophen < 2 ug/ml (10-30); Lithium 0.4 mmol/L (0.6-1.2); Salicylate < 1.7 mg/dl (2.8-20)
[2021-03-03 10:47] LABS: Albumin Globulin Ratio 1.2 (0.9-2); Bilirubin,Total 0.5 mg/dl (0.2-1); Globulin 3.6 gm/dl (2.5-4.0); Thyroid Stimulating Hormone 1.89 uIu/ml (0.300-4.500); Total Protein 7.9 gm/dl (6.4-8.2)
--- NOTE | 2021-03-03 10:51 | XRay Report ---
SINGLE VIEW CHEST CLINICAL HISTORY: Change in mental status. FINDINGS: An AP, portable, upright chest radiograph is obtained. No prior studies are available for c omparison at the time of dictation. The examination is mildly degraded by portable technique and rowdy ent rotation. The cardiomediastinal silhouette is unremarkable. There are low lung volumes with biba silar atelectasis. No large pleural effusion or pneumothorax is seen. The bony thorax is grossly inta ct. IMPRESSION: There are low lung volumes with bibasilar atelectasis. No airspace consolidation or large pleural effusion is identified. ACT 112: Negative or not required by law. Electronically signed by: Patrick Alberto M.D. 03/03/2021 10:49 AM
[2021-03-03] MEDS ORDERED: LORazepam 2 MG/4 ML VIAL ONE (11:33)
[2021-03-03] MEDS ORDERED: HALOPERIDOL LACTATE 5 MG/ML 1 ML VIAL IV STA (11:34)
[2021-03-03] MEDS ORDERED: HALOPERIDOL LACTATE 5 MG/ML 1 ML VIAL ONE ×2 (11:34→11:36)
[2021-03-03] MEDS ORDERED: LORazepam 2 MG/4 ML VIAL IV STA (11:34)
--- NOTE | 2021-03-03 13:26 | Electrocardiogram Report ---
Test Reason : Blood Pressure : / mmHG Vent. Rate : 075 BPM Atrial Rate : 075 BPM P-R Int : 156 ms QRS Dur : 114 ms QT Int : 386 ms P-R-T Axes : 012 015 045 degrees QTc Int : 431 ms Normal sinus rhythm Incomplete right bundle branch block Borderline ECG When compared with ECG of 15-DEC-2018 09:57, Vent. rate has increased BY 25 BPM QT has lengthened Confirmed by Vivek Cantrell ([id number]) on 03/03/2021 1:26:08 PM Referred By: REFERRED SELF Confirmed By:Jorge Cantrell
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
[2021-03-03 18:28] LABS: Appearance Urine Clear (Clear); Bilirubin Urine Negative (Negative); Blood Urine Negative (Negative); Color Urine Yellow; Glucose Urine UA Negative (Negative); Ketones Urine Trace (Negative); Leukocyte Esterase Urine Negative (Negative); Nitrite Urine Negative (Negative); Protein Urine Negative (Negative); Specific Gravity Urine 1.007 (1.000-1.030); Urobilinogen Urine Negative (Negative); pH Urine 6.5 (4.5-7.5)
[2021-03-03 18:53] LABS: Amphetamines+Metham, Urine Neg (Neg); Barbiturates, Urine Neg (Neg); Benzodiazepine, Urine Neg (Neg); Cocaine, Urine Neg (Neg); MDMA (Ecstacy), Urine Neg (Neg); Methadone, Urine Neg (Neg); Opiate, Urine Neg (Neg); Phencyclidine, Urine Neg (Neg)
[2021-03-03] MEDS ORDERED: ALUMINUM/MAGNESIUM SUSP 30 ML UDC PO PRN (20:47)
[2021-03-03] MEDS ORDERED: hydrOXYzine HCl 25 MG TAB PO PRN ×2 (20:47)
[2021-03-03] MEDS ORDERED: ACETAMINOPHEN 325 MG TAB PO PRN (20:47)
[2021-03-03] MEDS ORDERED: SODIUM CHLORIDE 0.65% NA SOLN 45 ML (OCEAN) PRN (20:47)
[2021-03-03] MEDS ORDERED: MAGNESIUM HYDROXIDE SUSP 30 ML UDC PO PRN (20:47)
[2021-03-03] MEDS ORDERED: QUEtiapine FUMARATE 300 MG TABLET PO SCH (22:00)
[2021-03-03] MEDS ORDERED: LITHIUM CARBONATE 300 MG TAB PO SCH (22:00)
[2021-03-04] MEDS ORDERED: VENLAFAXINE HCL XR 37.5 MG CAPXR PO SCH (11:15)
[2021-03-04] MEDS: diazePAM 5 MG TABLET PO PRN (11:20)
[2021-03-04] MEDS ORDERED: VENLAFAXINE HCL XR 150 MG CAPXR PO STA (12:03)
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
[2021-03-04] MEDS: LITHIUM CARBONATE 300 MG TAB PO SCH ×2 (21:20)
[2021-03-04] MEDS: QUEtiapine FUMARATE 100 MG TABLET PO SCH (21:22)
[2021-03-04] MEDS ORDERED: LITHIUM CARBONATE 300 MG TAB PO SCH (22:00)
[2021-03-05] MEDS ORDERED: VENLAFAXINE HCL XR 150 MG CAPXR PO SCH (09:00)
[2021-03-05] MEDS: VENLAFAXINE HCL XR 150 MG CAPXR PO SCH (10:43)
--- NOTE | 2021-03-05 12:04 | Psychiatric Progress Note ---
Date of Service March 05, 2021 Impression / Recommendations Impression This is a 35-year-old male who presented following a decompensation of his schizoaffective illness likely secondary to medication noncompliance. Patient was initially 302 due to level of psychosis, now is more cooperative and willing to engage with treatment. Currently still psychotic although much more in control. The patient is agreeable to med changes to target his mood and psychosis. He will require inpatient hospitalization for purposes of safety, stabilization, and medication management. (1) Schizoaffective disorder: The patient was admitted to the [facility] on every 15 minute checks (behavioral with suicide precautions for safety. The patient will participate in group, recreational, and milieu therapies and will be offered additional individual and family sessions as clinically appropriate. 03/04/2021we will plan to restart patient's medications starting with lithium, Seroquel, and venlafaxine. We will hold off on Wellbutrin for time being. 03/05/2021we will continue lithium 1350 mg nightly, Seroquel 500 mg nightly, venlafaxine 150 mg every morning. Risk Factors Assessment Male: Yes : Yes Do You Have Access To A Gun?: No Health Problems: No Mental Health Diagnoses: Yes Substance Use Disorders: No Family History of Suicide: No Hopelessness: No Protective Factors Assessment Nondenominational Beliefs: Yes : No Responsible for Young Children: No Employed: No Stable Relationships: Yes Supportive Family: Yes Interval History Chief Complaint "I'm okay thank you". Review of Systems Sleep Information Total Hours of Sleep: 7.25 Sleep Comments: pt on q-15 minute checks Meal Information Percent Meal Consumed - Breakfast: 100 Percent Meal Consumed - Lunch: 100 Percent Meal Consumed - Dinner: 100 Subjective Subjective Patient seen, chart reviewed and case discussed with treatment team, nursing and social work. Patient reports a fair night of sleep and strong appetite. No side effects reported or observed. Regarding mood, patient reports some improvement which they attribute to the medications as well as the therapy they have received on the unit. He was informed of the plan to slowly restart his medications to which he was agreeable. Patient noted less anxiety than yesterday, but still states feeling "off" with regard to his mood. Seen isolating during the day and is questionably still internally preoccupied. Patient is however compliant with medications and cooperative with care thus far. I spent 30 minutes with the patient, 50% of which was dedicated to counselling and coordination of care. Physical Exam Psychiatric Orientation: alert and oriented x 3 Apperance: appropriately dressed and appropriately groomed Eye Contact: + fair eye contact Motor Behavior: no abnormal motor movements Speech: normal rate/rhythm/volume of speech Affect: + flat affect, + labile affect and + constricted affect Mood: + anxious mood and + dysphoric mood Thought Process: + tangential thought process and + perseveration Thought Content: + paranoid, + cognitive distortions, + delusions, + derealization and + guilt Suicidal Thoughts: denies suicidal thoughts, denies suicidal plan and denies suicidal intent Homicidal Thoughts: denies homicidal thoughts, denies homicidal plan and denies homicidal intent Hallucinations: no auditory hallucinations and no visual hallucinations Cognition: recent memory grossly intact Estimated Intelligence: consistent with education level Insight: + limited insight Judgement: + poor judgement Vital Signs (Past 24 Hours) Last Vital Signs Temp 36.5 C 03/05/21 06:44 Pulse 98 H 03/05/21 06:45 Resp 16 03/05/21 06:44 BP 140/90 03/05/21 06:45 Pulse Ox 98 03/03/21 13:00 Results & Data ([facility]) Current Inpatient Medications Current Inpatient Medications: Current Inpatient Medications Acetaminophen (Acetaminophen 325 Mg Tab) 650 mg PO Q4H PRN PRN Reason: Headache or Minor Fever Stop: 04/02/21 20:46 Al Hydrox/Mg Hydrox/Simethicone (Aluminum/Magnesium Susp 30 Ml Udc) 30 ml PO Q4H PRN PRN Reason: GI Upset Stop: 04/02/21 20:46 Bismuth Subsalicylate (Bismuth Subsalicylate Liqd 236 Ml) 15 ml PO PRN PRN PRN Reason: Loose Stool Stop: 04/02/21 20:46 Diazepam (Diazepam 5 Mg Tablet) 5 mg PO Q8 PRN PRN Reason: Anxiety Stop: 04/02/21 21:41 Last Admin: 03/04/21 11:20 Dose: 5 mg Documented by: [place] Carbonate ([place] Carbonate 300 Mg Tab) 150 mg PO HS RAGHAVENDRA Stop: 04/03/21 21:59 Last Admin: 03/04/21 21:20 Dose: 150 mg Documented by: [place] Carbonate ([place] Carbonate 300 Mg Tab) 1,200 mg PO HS RAGHAVENDRA Stop: 04/03/21 21:59 Last Admin: 03/04/21 21:20 Dose: 1,200 mg Documented by: Magnesium Hydroxide (Magnesium Hydroxide Susp 30 Ml Udc) 30 ml PO DAILY PRN PRN Reason: Constipation Stop: 04/02/21 20:46 Quetiapine Fumarate (Quetiapine Fumarate 100 Mg Tablet) 500 mg PO HS RAGHAVENDRA Stop: 04/03/21 21:59 Last Admin: 03/04/21 21:22 Dose: 500 mg Documented by: Sodium Chloride (Sodium Chloride 0.65% Na Soln 45 Ml ([place])) 1 - 2 sprays NA PRN PRN PRN Reason: Nasal Dryness/Congestion Stop: 04/02/21 20:46 Venlafaxine HCl (Venlafaxine Hcl Xr 150 Mg Capxr) 150 mg PO QAM RAGHAVENDRA Stop: 04/04/21 08:59 Last Admin: 03/05/21 10:43 Dose: 150 mg Documented by: [facility] Psychiatrist Name of Psychiatrist: Dr. Candelario Psychiatrist's Date of Appointment with Psychiatrist: 03/15/21 Time of Appointment with Psychiatrist: 6:00pm Psychiatric Appointment Comment: [address] [facility] Therapist Name of Therapist: [facility] - Gia Nichols LCSW Therapist's Date of Therapist Appointment: 03/14/21 Time of Therapist Appointment: 3:00 p.m. Therapy Appointment Comment: Telehealth Principal Solutions Architect Name of Principal Solutions Architect: [facility] - Rohith Caldwell Phone Number for Principal Solutions Architect: [phone] Post Discharge Appointments Primary Care Physician Name Of Family Doctor: [facility] - Dr. Figueroa Primary Care Time of Appointment with PCP: Follow up as needed Provider Appointment Comment: [address] [facility] Partial or Psych Rehab Name of Partial or Psych Rehab: [facility] - [place] Phone Number of Partial or Psych Rehab: [phone] Partial or Psych Rehab Appointment Comment: [address] [facility], [address], [place] [address] Contact Information Discharge Discharge Address: [address] [place] [address] (1) Schizoaffective disorder Schizoaffective disorder type: bipolar Qualified Code(s): F25.0 - Schizoaffective disorder, bipolar type
[2021-03-05] MEDS: BISMUTH SUBSALICYLATE LIQD 236 ML PO PRN (14:14)
[2021-03-05] MEDS: LITHIUM CARBONATE 300 MG TAB PO SCH ×2 (21:31→21:33)
[2021-03-05] MEDS: QUEtiapine FUMARATE 100 MG TABLET PO SCH (21:34)
[2021-03-06] MEDS: VENLAFAXINE HCL XR 150 MG CAPXR PO SCH (08:19)
[2021-03-06] MEDS: BISMUTH SUBSALICYLATE LIQD 236 ML PO PRN ×2 (08:20→11:36)
--- NOTE | 2021-03-06 15:18 | Psychiatric Progress Note ---
Date of Service March 06, 2021 Impression / Recommendations Impression This is a 35-year-old male who presented following a decompensation of his schizoaffective illness likely secondary to medication noncompliance. Patient was initially 302 due to level of psychosis, now is more cooperative and willing to engage with treatment. Currently still psychotic although much more in control. The patient is agreeable to med changes to target his mood and psychosis. He will require inpatient hospitalization for purposes of safety, stabilization, and medication management. (1) Schizoaffective disorder: The patient was admitted to the [facility] ([facility] health unit) on every 15 minute checks (behavioral with suicide precautions for safety. The patient will participate in group, recreational, and milieu therapies and will be offered additional individual and family sessions as clinically appropriate. 03/04/2021we will plan to restart patient's medications starting with lithium, Seroquel, and venlafaxine. We will hold off on Wellbutrin for time being. 03/05/2021we will continue lithium 1350 mg nightly, Seroquel 500 mg nightly, venlafaxine 150 mg every morning. 03/06/2021atient making incremental progress. Will restart his thyroid medication tomorrow morning. Risk Factors Assessment Male: Yes : Yes Do You Have Access To A Gun?: No Health Problems: No Mental Health Diagnoses: Yes Substance Use Disorders: No Family History of Suicide: No Hopelessness: No Protective Factors Assessment Mormon Beliefs: Yes : No Responsible for Young Children: No Employed: No Stable Relationships: Yes Supportive Family: Yes Interval History Chief Complaint "I'm okay". Review of Systems Sleep Information Total Hours of Sleep: 6.5 Sleep Comments: pt on q-15 minute checks Meal Information Percent Meal Consumed - Breakfast: 100 Percent Meal Consumed - Lunch: 100 Percent Meal Consumed - Dinner: 100 Subjective Subjective Patient seen, chart reviewed and case discussed with treatment team, nursing and social work. Patient reports a good night of sleep and strong appetite. No side effects reported or observed. Regarding mood, patient reports some improvement which they attribute to the medications as well as the therapy they have received on the unit. Continues to have constricted affect at times. He is engaging in groups although minimally. Seen interacting appropriately with peers. I spent 30 minutes with the patient, 50% of which was dedicated to counselling and coordination of care. Physical Exam Psychiatric Orientation: alert and oriented x 3 Apperance: appropriately dressed and appropriately groomed Eye Contact: + fair eye contact Motor Behavior: no abnormal motor movements Speech: normal rate/rhythm/volume of speech Affect: + flat affect, + labile affect and + constricted affect Mood: + anxious mood and + dysphoric mood Thought Process: + tangential thought process and + perseveration Thought Content: + paranoid, + cognitive distortions, + delusions, + laura ealization and + guilt Suicidal Thoughts: denies suicidal thoughts, denies suicidal plan and denies suicidal intent Homicidal Thoughts: denies homicidal thoughts, denies homicidal plan and denies homicidal intent Hallucinations: no auditory hallucinations and no visual hallucinations Cognition: recent memory grossly intact Estimated Intelligence: consistent with education level Insight: + limited insight Judgement: + poor judgement Vital Signs (Past 24 Hours) Last Vital Signs Temp 36.6 C 03/06/21 06:40 Pulse 84 03/06/21 06:40 Resp 16 03/06/21 06:40 BP 127/84 03/06/21 06:40 Pulse Ox 98 03/03/21 13:00 Results & Data ([facility]) Current Inpatient Medications Current Inpatient Medications: Current Inpatient Medications Acetaminophen (Acetaminophen 325 Mg Tab) 650 mg PO Q4H PRN PRN Reason: Headache or Minor Fever Stop: 04/02/21 20:46 Al Hydrox/Mg Hydrox/Simethicone (Aluminum/Magnesium Susp 30 Ml Udc) 30 ml PO Q4H PRN PRN Reason: GI Upset Stop: 04/02/21 20:46 Bismuth Subsalicylate (Bismuth Subsalicylate Liqd 236 Ml) 15 ml PO PRN PRN PRN Reason: Loose Stool Stop: 04/02/21 20:46 Last Admin: 03/06/21 11:36 Dose: 15 ml Documented by: Diazepam (Diazepam 5 Mg Tablet) 5 mg PO Q8 PRN PRN Reason: Anxiety Stop: 04/02/21 21:41 Last Admin: 03/04/21 11:20 Dose: 5 mg Documented by: [place] Carbonate (K[place]in Carbonate 300 Mg Tab) 150 mg PO HS RAGHAVENDRA Stop: 04/03/21 21:59 Last Admin: 03/05/21 21:33 Dose: 150 mg Documented by: [place] Carbonate ([place] Carbonate 300 Mg Tab) 1,200 mg PO HS RAGHAVENDRA Stop: 04/03/21 21:59 Last Admin: 03/05/21 21:31 Dose: 1,200 mg Documented by: Magnesium Hydroxide (Magnesium Hydroxide Susp 30 Ml Udc) 30 ml PO DAILY PRN PRN Reason: Constipation Stop: 04/02/21 20:46 Quetiapine Fumarate (Quetiapine Fumarate 100 Mg Tablet) 500 mg PO HS RAGHAVENDRA Stop: 04/03/21 21:59 Last Admin: 03/05/21 21:34 Dose: 500 mg Documented by: Sodium Chloride (Sodium Chloride 0.65% Na Soln 45 Ml ([place])) 1 - 2 sprays NA PRN PRN PRN Reason: Nasal Dryness/Congestion Stop: 04/02/21 20:46 Venlafaxine HCl (Venlafaxine Hcl Xr 150 Mg Capxr) 150 mg PO QAM RAGHAVENDRA Stop: 04/04/21 08:59 Last Admin: 03/06/21 08:19 Dose: 150 mg Documented by: Mental Health & Subst Abuse Tx Psychiatrist Name of Psychiatrist: Dr. Candelario Psychiatrist's Date of Appointment with Psychiatrist: 03/15/21 Time of Appointment with Psychiatrist: 6:00pm Psychiatric Appointment Comment: [address] [facility] Therapist Name of Therapist: [facility] - Gia Nichols LCSW Therapist's Date of Therapist Appointment: 03/14/21 Time of Therapist Appointment: 3:00 p.m. Therapy Appointment Comment: Telehealth Footwear Factory Worker Name of Footwear Factory Worker: [facility] - Rohith Caldwell Phone Number for Footwear Factory Worker: [phone] Post Discharge Appointments Primary Care Physician Name Of Family Doctor: [facility] - Dr. Figueroa Primary Care Time of Appointment with PCP: Follow up as needed Provider Appointment Comment: [id number] [facility] Partial or Psych Rehab Name of Partial or Psych Rehab: [facility] - Letty Phone Number of Partial or Psych Rehab: [phone] Partial or Psych Rehab Appointment Comment: [id number] [facility], [address], [place] [address] Contact Information Discharge Discharge Address: [address] [place] [address], [place] (1) Schizoaffective disorder Schizoaffective disorder type: bipolar Qualified Code(s): F25.0 - Schizoaffective disorder, bipolar type
[2021-03-06] MEDS: QUEtiapine FUMARATE 100 MG TABLET PO SCH (21:54)
[2021-03-06] MEDS: LITHIUM CARBONATE 300 MG TAB PO SCH ×2 (21:57→21:58)
[2021-03-07] MEDS: LEVOTHYROXINE SODIUM 50 MCG TABLET PO SCH (08:19)
[2021-03-07] MEDS: VENLAFAXINE HCL XR 150 MG CAPXR PO SCH (08:19)
--- NOTE | 2021-03-07 12:25 | Psychiatric Progress Note ---
Date of Service March 07, 2021 Impression / Recommendations Impression This is a 35-year-old male who presented following a decompensation of his schizoaffective illness likely secondary to medication noncompliance. Patient was initially 302 due to level of psychosis, now is more cooperative and willing to engage with treatment. Currently still psychotic although much more in control. The patient is agreeable to med changes to target his mood and psychosis. He will require inpatient hospitalization for purposes of safety, stabilization, and medication management. (1) Schizoaffective disorder: The patient was admitted to the [facility] ([facility] unit) on every 15 minute checks (behavioral with suicide precautions for safety. The patient will participate in group, recreational, and milieu therapies and will be offered additional individual and family sessions as clinically appropriate. 03/07/2021will increase venlafaxine to 27.5 mg p.o. every morning as it was prior to coming inpatient. Will also restart Wellbutrin 150 mg p.o. every morning. Patient's condition is improving, we can remove him from private room. 03/04/2021we will plan to restart patient's medications starting with lithium, Seroquel, and venlafaxine. We will hold off on Wellbutrin for time being. 03/05/2021we will continue lithium 1350 mg nightly, Seroquel 500 mg nightly, venlafaxine 150 mg every morning. 03/06/2021atient making incremental progress. Will restart his thyroid medication tomorrow morning. Risk Factors Assessment Male: Yes : Yes Do You Have Access To A Gun?: No Health Problems: No Mental Health Diagnoses: Yes Substance Use Disorders: No Family History of Suicide: No Hopelessness: No Protective Factors Assessment Anabaptist Beliefs: Yes : No Responsible for Young Children: No Employed: No Stable Relationships: Yes Supportive Family: Yes Interval History Chief Complaint "Good morning". Review of Systems Sleep Information Total Hours of Sleep: 6.5 Sleep Comments: pt on q-15 minute checks Meal Information Percent Meal Consumed - Breakfast: 100 Percent Meal Consumed - Lunch: 100 Percent Meal Consumed - Dinner: 100 Subjective Subjective Patient seen, chart reviewed and case discussed with treatment team, nursing and social work. Patient reports a good night of sleep and strong appetite. No side effects reported or observed. Regarding mood, patient reports some improvement which they attribute to the medications as well as the therapy they have received on the unit. Patient is agreeable to restart home medications at home dosages starting tomorrow morning. He reports that he has been steadily improving here on the unit and is grateful for the care thus far. Has been seeing somewhat isolated of and appears to be depressed. No psychosis reported. I spent 30 minutes with the patient, 50% of which was dedicated to counselling and coordination of care. Physical Exam Psychiatric Orientation: alert and oriented x 3 Apperance: appropriately dressed and appropriately groomed Eye Contact: + fair eye contact Motor Behavior: no abnormal motor movements Speech: normal rate/rhythm/volume of speech Affect: + flat affect, + labile affect and + constricted affect Mood: + anxious mood and + dysphoric mood Thought Process: + tangential thought process and + perseveration Thought Content: + paranoid, + cognitive distortions, + delusions, + derealization and + guilt Suicidal Thoughts: denies suicidal thoughts, denies suicidal plan and denies suicidal intent Homicidal Thoughts: denies homicidal thoughts, denies homicidal plan and denies homicidal intent Hallucinations: no auditory hallucinations and no visual hallucinations Cognition: recent memory grossly intact Estimated Intelligence: consistent with education level Insight: + limited insight Judgement: + poor judgement Vital Signs (Past 24 Hours) Last Vital Signs Temp 36.4 C L 03/07/21 06:44 Pulse 73 03/07/21 06:45 Resp 16 03/07/21 06:44 BP 126/85 03/07/21 06:45 Pulse Ox 98 03/03/21 13:00 Results & Data ([facility]) Current Inpatient Medications Current Inpatient Medications: Current Inpatient Medications Acetaminophen (Acetaminophen 325 Mg Tab) 650 mg PO Q4H PRN PRN Reason: Headache or Minor Fever Stop: 04/02/21 20:46 Al Hydrox/Mg Hydrox/Simethicone (Aluminum/Magnesium Susp 30 Ml Udc) 30 ml PO Q4H PRN PRN Reason: GI Upset Stop: 04/02/21 20:46 Bismuth Subsalicylate (Bismuth Subsalicylate Liqd 236 Ml) 15 ml PO PRN PRN PRN Reason: Loose Stool Stop: 04/02/21 20:46 Last Admin: 03/06/21 11:36 Dose: 15 ml Documented by: Bupropion HCl (Bupropion Sr 150 Mg Tabcr) 150 mg PO DAILY RAGHAVENDRA Stop: 04/07/21 08:59 Diazepam (Diazepam 5 Mg Tablet) 5 mg PO Q8 PRN PRN Reason: Anxiety Stop: 04/02/21 21:41 Last Admin: 03/04/21 11:20 Dose: 5 mg Documented by: Levothyroxine Sodium (Levothyroxine Sodium 50 Mcg Tablet) 50 mcg PO DAILYBB RAGHAVENDRA Stop: 04/06/21 07:59 Last Admin: 03/07/21 08:19 Dose: 50 mcg Documented by: [place] Carbonate (Hepburn Carbonate 300 Mg Tab) 150 mg PO HS RAGHAVENDRA Stop: 04/03/21 21:59 Last Admin: 03/06/21 21:58 Dose: 150 mg Documented by: [place] Carbonate ([place]burn Carbonate 300 Mg Tab) 1,200 mg PO HS RAGHAVENDRA Stop: 04/03/21 21:59 Last Admin: 03/06/21 21:57 Dose: 1,200 mg Documented by: Magnesium Hydroxide (Magnesium Hydroxide Susp 30 Ml Udc) 30 ml PO DAILY PRN PRN Reason: Constipation Stop: 04/02/21 20:46 Quetiapine Fumarate (Quetiapine Fumarate 100 Mg Tablet) 500 mg PO HS RAGHAVENDRA Stop: 04/03/21 21:59 Last Admin: 03/06/21 21:54 Dose: 500 mg Documented by: Sodium Chloride (Sodium Chloride 0.65% Na Soln 45 Ml ([place])) 1 - 2 sprays NA PRN PRN PRN Reason: Nasal Dryness/Congestion Stop: 04/02/21 20:46 Vitamin D (Cholecalciferol 1,000 Units 25 Mcg Tab) units PO DAILY RAGHAVENDRA Stop: 04/07/21 08:59 Mental Health & Subst Abuse Tx Psychiatrist Name of Psychiatrist: Dr. Candelario Psychiatrist's Date of Appointment with Psychiatrist: 03/15/21 Time of Appointment with Psychiatrist: 6:00pm Psychiatric Appointment Comment: [address] [facility] Therapist Name of Therapist: [facility] - Gia Nichols LCSW Therapist's Date of Therapist Appointment: 03/14/21 Time of Therapist Appointment: 3:00 p.m. Therapy Appointment Comment: Telehealth Fiction And Nonfiction Writer Prose Name of Fiction And Nonfiction Writer Prose: [facility] - Rohith Caldwell Phone Number for Fiction And Nonfiction Writer Prose: [phone] Post Discharge Appointments Primary Care Physician Name Of Family Doctor: [facility] - Dr. Figueroa Primary Care Time of Appointment with PCP: Follow up as needed Provider Appointment Comment: [address] [facility] Partial or Psych Rehab Name of Partial or Psych Rehab: [facility] - Letty Phone Number of Partial or Psych Rehab: [phone] Partial or Psych Rehab Appointment Comment: [address] [facility], [address], [place] [address] Contact Information Discharge Discharge Address: [address] [place] [address], [place] (1) Schizoaffective disorder Schizoaffective disorder type: bipolar Qualified Code(s): F25.0 - Schizoaffective disorder, bipolar type
[2021-03-07] MEDS: LITHIUM CARBONATE 300 MG TAB PO SCH ×2 (21:41→21:43)
[2021-03-07] MEDS: QUEtiapine FUMARATE 100 MG TABLET PO SCH (21:44)
[2021-03-07] MEDS: diazePAM 5 MG TABLET PO PRN (23:13)
[2021-03-08] MEDS: buPROPion SR 100 MG TABCR PO SCH (08:03)
[2021-03-08] MEDS: LEVOTHYROXINE SODIUM 50 MCG TABLET PO SCH (08:03)
[2021-03-08] MEDS: VENLAFAXINE HCL XR 37.5 MG CAPXR PO SCH (08:04)
[2021-03-08] MEDS: CHOLECALCIFEROL 1,000 UNITS 25 MCG TAB PO SCH (08:04)
[2021-03-08] MEDS ORDERED: buPROPion SR 150 MG TABCR PO SCH (09:00)
--- NOTE | 2021-03-08 10:49 | Psychiatric Progress Note ---
Date of Service March 08, 2021 Impression / Recommendations Impression This is a 35-year-old male who presented following a decompensation of his schizoaffective illness likely secondary to medication noncompliance. Patient was initially 302 due to level of psychosis, now is more cooperative and willing to engage with treatment. Currently still psychotic although much more in control. The patient is agreeable to med changes to target his mood and psychosis. He will require inpatient hospitalization for purposes of safety, stabilization, and medication management. (1) Schizoaffective disorder: The patient was admitted to the [facility] ([facility]) on every 15 minute checks (behavioral with suicide precautions for safety. The patient will participate in group, recreational, and milieu therapies and will be offered additional individual and family sessions as clinically appropriate. 03/07/2021will increase venlafaxine to 27.5 mg p.o. every morning as it was prior to coming inpatient. Will also restart Wellbutrin 150 mg p.o. every morning. Patient's condition is improving, we can remove him from private room. 03/04/2021we will plan to restart patient's medications starting with lithium, Seroquel, and venlafaxine. We will hold off on Wellbutrin for time being. 03/05/2021we will continue lithium 1350 mg nightly, Seroquel 500 mg nightly, venlafaxine 150 mg every morning. 03/06/2021atient making incremental progress. Will restart his thyroid medication tomorrow morning. Risk Factors Assessment Male: Yes : Yes Do You Have Access To A Gun?: No Health Problems: No Mental Health Diagnoses: Yes Substance Use Disorders: No Family History of Suicide: No Hopelessness: No Protective Factors Assessment Latter-Day Beliefs: Yes : No Responsible for Young Children: No Employed: No Stable Relationships: Yes Supportive Family: Yes Interval History Chief Complaint "I feel good Dr.". Review of Systems Sleep Information Total Hours of Sleep: 4 Sleep Comments: pt with RANDY @0300 and thereafter. pt on q-15 minute checks Meal Information Percent Meal Consumed - Breakfast: 100 Percent Meal Consumed - Lunch: 100 Percent Meal Consumed - Dinner: 100 Subjective Subjective Patient seen, chart reviewed and case discussed with treatment team, nursing and social work. Patient reports a good appetite. Patient had a poor night's sleep. No side effects reported or observed. Regarding mood, patient reports some improvement which they attribute to the medications as well as the therapy they have received on the unit. I spent 30 minutes with the patient, 50% of which was dedicated to counselling and coordination of care. Physical Exam Psychiatric Orientation: alert and oriented x 3 Apperance: appropriately dressed and appropriately groomed Eye Contact: + fair eye contact Motor Behavior: no abnormal motor movements Speech: normal rate/rhythm/volume of speech Affect: + flat affect, + labile affect and + constricted affect Mood: + anxious mood and + dysphoric mood Thought Process: + tangential thought process and + perseveration Thought Content: + paranoid, + cognitive distortions, + delusions, + derealization and + guilt Suicidal Thoughts: denies suicidal thoughts, denies suicidal plan and denies suicidal intent Homicidal Thoughts: denies homicidal thoughts, denies homicidal plan and denies homicidal intent Hallucinations: no auditory hallucinations and no visual hallucinations Cognition: recent memory grossly intact Estimated Intelligence: consistent with education level Insight: + limited insight Judgement: + poor judgement Vital Signs (Past 24 Hours) Last Vital Signs Temp 36.6 C 03/08/21 06:39 Pulse 90 03/08/21 06:41 Resp 16 03/08/21 06:39 BP 113/73 03/08/21 06:41 Pulse Ox 98 03/03/21 13:00 Results & Data ([facility]) Current Inpatient Medications Current Inpatient Medications: Current Inpatient Medications Acetaminophen (Acetaminophen 325 Mg Tab) 650 mg PO Q4H PRN PRN Reason: Headache or Minor Fever Stop: 04/02/21 20:46 Al Hydrox/Mg Hydrox/Simethicone (Aluminum/Magnesium Susp 30 Ml Udc) 30 ml PO Q4H PRN PRN Reason: GI Upset Stop: 04/02/21 20:46 Bismuth Subsalicylate (Bismuth Subsalicylate Liqd 236 Ml) 15 ml PO PRN PRN PRN Reason: Loose Stool Stop: 04/02/21 20:46 Last Admin: 03/06/21 11:36 Dose: 15 ml Documented by: Bupropion HCl (Bupropion Sr 100 Mg Tabcr) 100 mg PO DAILY RAGHAVENDRA Stop: 04/07/21 08:59 Last Admin: 03/08/21 08:03 Dose: 100 mg Documented by: Diazepam (Diazepam 5 Mg Tablet) 5 mg PO Q8 PRN PRN Reason: Anxiety Stop: 04/02/21 21:41 Last Admin: 03/07/21 23:13 Dose: 5 mg Documented by: Levothyroxine Sodium (Levothyroxine Sodium 50 Mcg Tablet) 50 mcg PO DAILYBB [facility] Stop: 04/06/21 07:59 Last Admin: 03/08/21 08:03 Dose: 50 mcg Documented by: [place] Carbonate ([place] Carbonate 300 Mg Tab) 150 mg PO HS [facility] Stop: 04/03/21 21:59 Last Admin: 03/07/21 21:43 Dose: 150 mg Documented by: [place] Carbonate ([place] Carbonate 300 Mg Tab) 1,200 mg PO HS [facility] Stop: 04/03/21 21:59 Last Admin: 03/07/21 21:41 Dose: 1,200 mg Documented by: Magnesium Hydroxide (Magnesium Hydroxide Susp 30 Ml Udc) 30 ml PO DAILY PRN PRN Reason: Constipation Stop: 04/02/21 20:46 Quetiapine Fumarate (Quetiapine Fumarate 100 Mg Tablet) 500 mg PO HS [facility] Stop: 04/03/21 21:59 Last Admin: 03/07/21 21:44 Dose: 500 mg Documented by: Sodium Chloride (Sodium Chloride 0.65% Na Soln 45 Ml ([place])) 1 - 2 sprays NA PRN PRN PRN Reason: Nasal Dryness/Congestion Stop: 04/02/21 20:46 Venlafaxine HCl (Venlafaxine Hcl Xr 37.5 Mg Capxr) 187.5 mg PO QAM [facility] Stop: 04/07/21 08:59 Last Admin: 03/08/21 08:04 Dose: 187.5 mg Documented by: Vitamin D (Cholecalciferol 1,000 Units 25 Mcg Tab) 1,000 units PO DAILY RAGHAVENDRA Stop: 04/07/21 08:59 Last Admin: 03/08/21 08:04 Dose: 1,000 units Documented by: Mental Health & Subst Abuse Tx Psychiatrist Name of Psychiatrist: Dr. Candelario Psychiatrist's Date of Appointment with Psychiatrist: 03/15/21 Time of Appointment with Psychiatrist: 6:00pm Psychiatric Appointment Comment: [address] [facility] Therapist Name of Therapist: [facility] - Gia Van Saun, STEELWORKER Therapist's Date of Therapist Appointment: 03/14/21 Time of Therapist Appointment: 3:00 p.m. Therapy Appointment Comment: Telehealth Picker Box Operator Name of Picker Box Operator: [facility] - Rohith Danielelmer Caldwell Phone Number for Picker Box Operator: [phone] Post Discharge Appointments Primary Care Physician Name Of Family Doctor: [facility] - Dr. Figueroa Primary Care Time of Appointment with PCP: Follow up as needed Provider Appointment Comment: [address] [facility] Partial or Psych Rehab Name of Partial or Psych Rehab: [facility] - Letty Phone Number of Partial or Psych Rehab: [phone] Partial or Psych Rehab Appointment Comment: [id number] [facility], [address], [place] [address] Contact Information Discharge Discharge Address: [address] [place] [address], [place] (1) Schizoaffective disorder Schizoaffective disorder type: bipolar Qualified Code(s): F25.0 - Schizoaffective disorder, bipolar type
--- NOTE | 2021-03-08 15:55 | Communication Note ---
Date of Service: March 08, 2021 Spoke to patient regarding his poor sleep, which he informed me was due to having a roommate who both snores and is causing him to be little bit more para noid. Patient had been sleeping well prior to having a roommate and appears to be more anxious today due to his insomnia last night. Discussion was had with nursing staff on whether patient can be given DARYN area to sleep in, however with other aggressive patients on the unit it was determined that it would be best to keep the DARYN area open and instead move the patient to a private room. Medically necessary private room ordered for this patient as sleep is so important to regain stability in this schizoaffective patient.
[2021-03-08] MEDS: LITHIUM CARBONATE 300 MG TAB PO SCH ×2 (20:57)
[2021-03-08] MEDS ORDERED: QUEtiapine FUMARATE 300 MG TABLET PO SCH (22:00)
[2021-03-09] MEDS: CHOLECALCIFEROL 1,000 UNITS 25 MCG TAB PO SCH (07:49)
[2021-03-09] MEDS: buPROPion SR 100 MG TABCR PO SCH (07:49)
[2021-03-09] MEDS: LEVOTHYROXINE SODIUM 50 MCG TABLET PO SCH (07:49)
[2021-03-09] MEDS: VENLAFAXINE HCL XR 37.5 MG CAPXR PO SCH (07:50)
--- NOTE | 2021-03-09 14:51 | Psychiatric Progress Note ---
Date of Service March 09, 2021 Impression / Recommendations Impression This is a 35-year-old male who presented following a decompensation of his schizoaffective illness likely secondary to medication noncompliance. Patient was initially 302 due to level of psychosis, however signed in voluntary. He will require inpatient hospitalization for purposes of safety, stabilization, and medication management. Patient making incremental progress. (1) Schizoaffective disorder: The patient was admitted to the [facility] on every 15 minute checks (behavioral with suicide precautions for safety. The patient will participate in group, recreational, and milieu therapies and will be offered additional individual and family sessions as clinically appropriate. 03/09/2021atient now on medications from home regimen, and therapeutic on lithium dose. He is still complaining of oversedation. We will lower Seroquel dosage by 100 mg to a total of 500 mg p.o. nightly. Patient no longer complaining of psychotic symptoms 03/07/2021will increase venlafaxine to 187.5 mg p.o. every morning as it was prior to coming inpatient. Will also restart Wellbutrin 150 mg p.o. every morning. Patient's condition is improving. 03/04/2021we will plan to restart patient's medications starting with lithium, Seroquel, and venlafaxine. We will hold off on Wellbutrin for time being. 03/05/2021we will continue lithium 1350 mg nightly, Seroquel 500 mg nightly, venlafaxine 150 mg every morning. 03/06/2021atient making incremental progress. Will restart his thyroid medication tomorrow morning. Risk Factors Assessment Male: Yes : Yes Do You Have Access To A Gun?: No Health Problems: No Mental Health Diagnoses: Yes Substance Use Disorders: No Family History of Suicide: No Hopelessness: No Protective Factors Assessment Jewish Beliefs: Yes : No Responsible for Young Children: No Employed: No Stable Relationships: Yes Supportive Family: Yes Interval History Chief Complaint "I am okay I was a little bit tired today". Review of Systems Sleep Information Total Hours of Sleep: 6.25 Sleep Comments: pt on q-15 minute checks Meal Information Percent Meal Consumed - Breakfast: 100 Percent Meal Consumed - Lunch: 100 Percent Meal Consumed - Dinner: 100 Subjective Subjective Patient seen, chart reviewed and case discussed with treatment team, nursing and social work. Patient reports a good night of sleep and strong appetite. No side effects reported or observed with the exception of feeling oversedated. Regarding mood, patient reports some improvement which they attribute to the medications as well as the therapy they have received on the unit. He was thankful for the sleep that he got last night as he said he was well rested today. He did say he felt somewhat artificially tired and found himself napping despite having received a good night of sleep last night. He is agreeable to try a slightly smaller dose of the Seroquel medication. Hutchison level back at 0.8-WNL I spent 30 minutes with the patient, 50% of which was dedicated to counselling and coordination of care. Physical Exam Psychiatric Orientation: alert and oriented x 3 Apperance: appropriately dressed and appropriately groomed Eye Contact: + fair eye contact Motor Behavior: no abnormal motor movements Speech: normal rate/rhythm/volume of speech Affect: + flat affect, + labile affect and + constricted affect Mood: + anxious mood and + dysphoric mood Thought Process: + tangential thought process and + perseveration Thought Content: + paranoid, + cognitive distortions, + delusions, + dereal ization and + guilt Suicidal Thoughts: denies suicidal thoughts, denies suicidal plan and denies suicidal intent Homicidal Thoughts: denies homicidal thoughts, denies homicidal plan and denies homicidal intent Hallucinations: no auditory hallucinations and no visual hallucinations Cognition: recent memory grossly intact Estimated Intelligence: consistent with education level Insight: + limited insight Judgement: + poor judgement Vital Signs (Past 24 Hours) Last Vital Signs Temp 36.5 C 03/09/21 06:59 Pulse 91 H 03/09/21 06:59 Resp 16 03/09/21 06:59 BP 117/84 03/09/21 06:59 Pulse Ox 98 03/03/21 13:00 Results & Data ([facility]) Laboratory Results Laboratory Results - last 24 hr 03/09/21 08:11 Hutchison 0.8 Current Inpatient Medications Current Inpatient Medications: Current Inpatient Medications Acetaminophen (Acetaminophen 325 Mg Tab) 650 mg PO Q4H PRN PRN Reason: Headache or Minor Fever Stop: 04/02/21 20:46 Al Hydrox/Mg Hydrox/Simethicone (Aluminum/Magnesium Susp 30 Ml Udc) 30 ml PO Q4H PRN PRN Reason: GI Upset Stop: 04/02/21 20:46 Bismuth Subsalicylate (Bismuth Subsalicylate Liqd 236 Ml) 15 ml PO PRN PRN PRN Reason: Loose Stool Stop: 04/02/21 20:46 Last Admin: 03/06/21 11:36 Dose: 15 ml Documented by: Bupropion HCl (Bupropion Sr 100 Mg Tabcr) 100 mg PO DAILY RAGHAVENDRA Stop: 04/07/21 08:59 Last Admin: 03/09/21 07:49 Dose: 100 mg Documented by: Diazepam (Diazepam 5 Mg Tablet) 5 mg PO Q8 PRN PRN Reason: Anxiety Stop: 04/02/21 21:41 Last Admin: 03/07/21 23:13 Dose: 5 mg Documented by: Levothyroxine Sodium (Levothyroxine Sodium 50 Mcg Tablet) [facility] Stop: 04/06/21 07:59 Last Admin: 03/09/21 07:49 Dose: 50 mcg Documented by: Hutchison Carbonate (Hutchison Carbonate 300 Mg Tab) 150 mg PO [facility] Stop: 04/03/21 21:59 Last Admin: 03/08/21 20:57 Dose: 150 mg Documented by: Hutchison Carbonate (Hutchison Carbonate 300 Mg Tab) 1,200 mg PO [facility] Stop: 04/03/21 21:59 Last Admin: 03/08/21 20:57 Dose: 1,200 mg Documented by: Magnesium Hydroxide (Magnesium Hydroxide Susp 30 Ml Udc) 30 ml PO DAILY PRN PRN Reason: Constipation Stop: 04/02/21 20:46 Quetiapine Fumarate (Quetiapine Fumarate 300 Mg Tablet) 600 mg PO [facility] Stop: 04/07/21 21:59 Last Admin: 03/08/21 20:58 Dose: 600 mg Documented by: Sodium Chloride (Sodium Chloride 0.65% Na Soln 45 Ml ([place])) 1 - 2 sprays NA PRN PRN PRN Reason: Nasal Dryness/Congestion Stop: 04/02/21 20:46 Venlafaxine HCl (Venlafaxine Hcl Xr 37.5 Mg Capxr) 187.5 mg PO QA RAGHAVENDRA Stop: 04/07/21 08:59 Last Admin: 03/09/21 07:50 Dose: 187.5 mg Documented by: Vitamin D (Cholecalciferol 1,000 Units 25 Mcg Tab) 1,000 units PO DAILY RAGHAVENDRA Stop: 04/07/21 08:59 Last Admin: 03/09/21 07:49 Dose: 1,000 units Documented by: Mental Health & Subst Abuse Tx Psychiatrist Name of Psychiatrist: Dr. Candelario Psychiatrist's Date of Appointment with Psychiatrist: 03/15/21 Time of Appointment with Psychiatrist: 6:00pm Psychiatric Appointment Comment: [address] [facility] Therapist Name of Therapist: [facility] - Gia Nichols LCSW Therapist's Date of Therapist Appointment: 03/14/21 Time of Therapist Appointment: 3:00 p.m. Therapy Appointment Comment: Telehealth Varsity Baseball Coach Name of Varsity Baseball Coach: [facility] - Rohith Caldwell Phone Number for Varsity Baseball Coach: [phone] Date of Appointment with Varsity Baseball Coach: 03/14/21 Time of Appointment with Varsity Baseball Coach: 9:00 AM Post Discharge Appointments Primary Care Physician Name Of Family Doctor: [facility] - Dr. Figueroa Primary Care Time of Appointment with PCP: Follow up as needed Provider Appointment Comment: [address] [facility] Partial or Psych Rehab Name of Partial or Psych Rehab: [facility] - [place] Phone Number of Partial or Psych Rehab: [phone] Partial or Psych Rehab Appointment Comment: [id number], [address], [place] [address] Contact Information Discharge Discharge Address: [address] [place] [address], [place] (1) Schizoaffective disorder Schizoaffective disorder type: bipolar Qualified Code(s): F25.0 - Schizoaffective disorder, bipolar type
[2021-03-09] MEDS ORDERED: diazePAM 5 MG TABLET PO PRN (15:04)
[2021-03-09] MEDS: LITHIUM CARBONATE 300 MG TAB PO SCH ×2 (22:19→22:21)
[2021-03-09] MEDS: QUEtiapine FUMARATE 100 MG TABLET PO SCH (22:22)
[2021-03-10] MEDS: LEVOTHYROXINE SODIUM 50 MCG TABLET PO SCH (07:51)
[2021-03-10] MEDS: CHOLECALCIFEROL 1,000 UNITS 25 MCG TAB PO SCH (07:52)
[2021-03-10] MEDS: buPROPion SR 100 MG TABCR PO SCH (07:52)
[2021-03-10] MEDS: VENLAFAXINE HCL XR 37.5 MG CAPXR PO SCH (07:52)
--- NOTE | 2021-03-10 15:27 | Psychiatric Progress Note ---
Date of Service March 10, 2021 Impression / Recommendations Impression This is a 35-year-old male who presented following a decompensation of his schizoaffective illness likely secondary to medication noncompliance. Patient was initially 302 due to level of psychosis, however signed in voluntary. He will require inpatient hospitalization for purposes of safety, stabilization, and medication management. Patient has shown significant improvement and appears to be returning back to baseline. Likely discharge tomorrow. (1) Schizoaffective disorder: The patient was admitted to the [facility] ([facility]) on every 15 minute checks (behavioral with suicide precautions for safety. The patient will participate in group, recreational, and milieu therapies and will be offered additional individual and family sessions as clinically appropriate. 03/10/2021atient returning to baseline. We will likely discharge tomorrow. 03/09/2021atient now on medications from home regimen, and therapeutic on lithium dose. He is still complaining of oversedation. We will lower Seroquel dosage by 100 mg to a total of 500 mg p.o. nightly. Patient no longer complaining of psychotic symptoms 03/07/2021will increase venlafaxine to 187.5 mg p.o. every morning as it was prior to coming inpatient. Will also restart Wellbutrin 150 mg p.o. every morning. Patient's condition is improving. 03/04/2021we will plan to restart patient's medications starting with lithium, Seroquel, and venlafaxine. We will hold off on Wellbutrin for time being. 03/05/2021we will continue lithium 1350 mg nightly, Seroquel 500 mg nightly, venlafaxine 150 mg every morning. 03/06/2021atient making incremental progress. Will restart his thyroid medication tomorrow morning. Risk Factors Assessment Male: Yes : Yes Do You Have Access To A Gun?: No Health Problems: No Mental Health Diagnoses: Yes Substance Use Disorders: No Family History of Suicide: No Hopelessness: No Protective Factors Assessment Alevism Beliefs: Yes : No Responsible for Young Children: No Employed: No Stable Relationships: Yes Supportive Family: Yes Interval History Chief Complaint "I am doing good thank you". Review of Systems Sleep Information Total Hours of Sleep: 7 Sleep Comments: pt on q-15 minute checks Meal Information Percent Meal Consumed - Breakfast: 100 Percent Meal Consumed - Lunch: 100 Percent Meal Consumed - Dinner: 100 Subjective Subjective Patient seen, chart reviewed and case discussed with treatment team, nursing and social work. Patient reports a good night of sleep and strong appetite. No side effects reported or observed. Regarding mood, patient reports some improvement which they attribute to the medications as well as the therapy they have received on the unit. Patient reports sleeping better since having prior room as well as feeling less tired during the day with the decreased dosage of Seroquel from 600mg back down to 500mg. I spent 30 minutes with the patient, 50% of which was dedicated to counselling and coordination of care. Physical Exam Psychiatric Orientation: alert and oriented x 3 Apperance: appropriately dressed and appropriately groomed Eye Contact: + fair eye contact Motor Behavior: no abnormal motor movements Speech: normal rate/rhythm/volume of speech Affect: + flat affect, + labile affect and + constricted affect Mood: + anxious mood and + dysphoric mood Thought Process: + tangential thought process and + perseveration Thought Content: + paranoid, + cognitive distortions, + delusions, + derealization and + guilt Suicidal Thoughts: denies suicidal thoughts, denies suicidal plan and denies suicidal intent Homicidal Thoughts: denies homicidal thoughts, denies homicidal plan and denies homicidal intent Hallucinations: no auditory hallucinations and no visual hallucinations Cognition: recent memory grossly intact Estimated Intelligence: consistent with education level Insight: + limited insight Judgement: + poor judgement Vital Signs (Past 24 Hours) Last Vital Signs Temp 36.6 C 03/10/21 06:32 Pulse 96 H 03/10/21 06:33 Resp 18 03/10/21 06:32 BP 139/86 03/10/21 06:33 Pulse Ox 98 03/03/21 13:00 Results & Data ([facility]) Current Inpatient Medications Current Inpatient Medications: Current Inpatient Medications Acetaminophen (Acetaminophen 325 Mg Tab) 650 mg PO Q4H PRN PRN Reason: Headache or Minor Fever Stop: 04/02/21 20:46 Al Hydrox/Mg Hydrox/Simethicone (Aluminum/Magnesium Susp 30 Ml Udc) 30 ml PO Q4H PRN PRN Reason: GI Upset Stop: 04/02/21 20:46 Bismuth Subsalicylate (Bismuth Subsalicylate Liqd 236 Ml) 15 ml PO PRN PRN PRN Reason: Loose Stool Stop: 04/02/21 20:46 Last Admin: 03/06/21 11:36 Dose: 15 ml Documented by: Bupropion HCl (Bupropion Sr 100 Mg Tabcr) 100 mg PO DAILY RAGHAVENDRA Stop: 04/07/21 08:59 Last Admin: 03/10/21 07:52 Dose: 100 mg Documented by: Diazepam (Diazepam 5 Mg Tablet) 2.5 mg PO Q12 PRN PRN Reason: Anxiety Stop: 04/02/21 21:41 Levothyroxine Sodium (Levothyroxine Sodium 50 Mcg Tablet) 50 mcg PO DAILYBB RAGHAVENDRA Stop: 04/06/21 07:59 Last Admin: 03/10/21 07:51 Dose: 50 mcg Documented by: [place] Carbonate (Ferney Carbonate 300 Mg Tab) 150 mg PO [facility] Stop: 04/03/21 21:59 Last Admin: 03/09/21 22:19 Dose: 150 mg Documented by: [place] Carbonate (Ferney Carbonate 300 Mg Tab) 1,200 mg PO [facility] Stop: 04/03/21 21:59 Last Admin: 03/09/21 22:21 Dose: 1,200 mg Documented by: Magnesium Hydroxide (Magnesium Hydroxide Susp 30 Ml Udc) 30 ml PO DAILY PRN PRN Reason: Constipation Stop: 04/02/21 20:46 Quetiapine Fumarate (Quetiapine Fumarate 100 Mg Tablet) 500 mg PO [facility] Stop: 04/08/21 21:59 Last Admin: 03/09/21 22:22 Dose: 500 mg Documented by: Sodium Chloride (Sodium Chloride 0.65% Na Soln 45 Ml ([place])) 1 - 2 sprays NA PRN PRN PRN Reason: Nasal Dryness/Congestion Stop: 04/02/21 20:46 Venlafaxine HCl (Venlafaxine Hcl Xr 37.5 Mg Capxr) 187.5 mg PO QAM RAGHAVENDRA Stop: 04/07/21 08:59 Last Admin: 03/10/21 07:52 Dose: 187.5 mg Documented by: Vitamin D (Cholecalciferol 1,000 Units 25 Mcg Tab) 1,000 units PO DAILY RAGHAVENDRA Stop: 04/07/21 08:59 Last Admin: 03/10/21 07:52 Dose: 1,000 units Documented by: Mental Health & Subst Abuse Tx Psychiatrist Name of Psychiatrist: Dr. Candelario Psychiatrist's Date of Appointment with Psychiatrist: 03/15/21 Time of Appointment with Psychiatrist: 6:00pm Psychiatric Appointment Comment: [address] [facility] Therapist Name of Therapist: [facility] - Gia Nichols LCSW Therapist's Date of Therapist Appointment: 03/14/21 Time of Therapist Appointment: 3:00 p.m. Therapy Appointment Comment: Telehealth Hospital Internship Name of Hospital Internship: [facility] - Rohith Caldwell Phone Number for Hospital Internship: [phone] Date of Appointment with Hospital Internship: 03/14/21 Time of Appointment with Hospital Internship: 9:00 AM Case Management Appointment Comment: Will meet you in [facility] Post Discharge Appointments Primary Care Physician Name Of Family Doctor: [facility] - Dr. Figueroa Primary Care Time of Appointment with PCP: Follow up as needed Provider Appointment Comment: [address] [place] [address] Partial or Psych Rehab Name of Partial or Psych Rehab: [facility] [place] Phone Number of Partial or Psych Rehab: Date of Appointment at Partial or Psych Rehab: 03/16/21 Time of Appointment at Partial or Psych Rehab: 11:00 AM Partial or Psych Rehab Appointment Comment: Will meet you at [facility]. Contact Information Discharge Discharge Address: [address] [place] [address], [place] (1) Schizoaffective disorder Schizoaffective disorder type: bipolar Qualified Code(s): F25.0 - Schizoaffective disorder, bipolar type
[2021-03-10] MEDS: QUEtiapine FUMARATE 100 MG TABLET PO SCH (22:19)
[2021-03-10] MEDS: LITHIUM CARBONATE 300 MG TAB PO SCH ×2 (22:19)
[2021-03-11] MEDS: LEVOTHYROXINE SODIUM 50 MCG TABLET PO SCH (08:05)
[2021-03-11] MEDS: buPROPion SR 100 MG TABCR PO SCH (08:05)
[2021-03-11] MEDS: CHOLECALCIFEROL 1,000 UNITS 25 MCG TAB PO SCH (08:06)
[2021-03-11] MEDS: VENLAFAXINE HCL XR 37.5 MG CAPXR PO SCH (08:06)
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
== END 2021-03-11 11:08 | disposition home or self-care (01) | DRG 885 ==
LOC: ED 09:47 → 3S 20:47
DX: F23 Brief psychotic disorder; Z91.14 Patient's other noncompliance with medication regimen; F25.0 Schizoaffective disorder, bipolar type